=== PATIENT | female | born 1930 | race Caucasian/White ===

== ENCOUNTER 2017-07-17 09:49 | Inpatient (IN) | payer OTHER ==
[~2017-07-17] VITALS: Ht 137.2 cm; Wt 59.6 kg
[2017-07-17] MEDS ORDERED: SODIUM CHLORIDE 0.9% 1000ML 1,000 ML IV STA (10:28)
[2017-07-17] MEDS ORDERED: SODIUM CHLORIDE 0.9% 1000ML 250 ML IV STA (10:28)
--- NOTE | 2017-07-17 11:13 | DIAGNOSTIC IMAGING REPORT ---
CHEST ONE VIEW PORTABLE CLINICAL HISTORY: 86 years-old Female presenting with CHEST PAIN. TECHNIQUE: Portable upright AP view of the chest was obtained. COMPARISON: None. FINDINGS: Median sternotomy wires noted. Atherosclerosis of the aortic arch with mild tortuosity of the descending thoracic aorta. Cardiac silhouette normal in size. Lungs and pleural spaces clear. Vertebroplasty changes noted at several levels. Degenerative changes of the glenohumeral joints. Slight contour deformity of the anterior right sixth and seventh ribs. Upper abdomen normal. IMPRESSION: 1. No acute cardiopulmonary disease. 2. Slight contour deformity of the right anterior sixth and seventh ribs raises concern for acute fractures. Correlate with point tenderness. Electronically signed by: Daryn Daniels M.D. 07/17/2017 11:12 AM Dictated Date/Time: 07/17/2017 11:10 AM
[2017-07-17 11:19] LABS: HEMATOCRIT 28.7 % (37-47); MEAN CELL VOLUME 91.4 fL (80-100); MEAN CORPUSCULAR HEMOGLOBIN 29.9 pg (25-34); MEAN CORPUSCULAR HGB CONC 32.8 g/dl (32-36); MEAN PLATELET VOLUME 9.1 fL (7.4-10.4); PLATELET COUNT 267 K/uL (130-400); RED BLOOD COUNT 3.14 M/uL (4.2-5.4); WHITE BLOOD COUNT 5.78 K/uL (4.8-10.8)
[2017-07-17 11:30] LABS: INR 0.9 (0.9-1.1); PARTIAL THROMBOPLASTIN RATIO 0.8; PROTHROMBIN TIME (PATIENT) 10.1 SECONDS (9.0-12.0)
[2017-07-17 11:35] LABS: BASO % 0.3 %; BASO ABS # 0.02 K/uL (0-0.2); COMPLETE YES; EOS % 1.4 %; IG% 0.9 %; LYMPH % 15.4 %; LYMPH ABS # 0.89 K/uL (1.2-3.4); MONO % 12.8 %; NEUT % 69.2 %
[2017-07-17 11:43] LABS: ALT/SGPT 169 U/L (12-78); BLOOD UREA NITROGEN 8 mg/dl (7-18); BUN/CREATININE RATIO 11.8 (10-20); CALCIUM 8.6 mg/dl (8.5-10.1); CARBON DIOXIDE 29 mmol/L (21-32); CHLORIDE 103 mmol/L (98-107); CREATININE 0.65 mg/dl (0.60-1.20); GLUCOSE 101 mg/dl (70-99); POTASSIUM 3.6 mmol/L (3.5-5.1); SODIUM 138 mmol/L (136-145)
[2017-07-17 11:48] LABS: ALKALINE PHOSPHATASE 223 U/L (45-117); AST/SGOT 252 U/L (15-37); CKMB/CK RATIO 0.9 (0-3.0)
--- NOTE | 2017-07-17 11:52 | DIAGNOSTIC IMAGING REPORT ---
HEAD WITHOUT CONTRAST (CT) CLINICAL HISTORY: 86 years-old Female presenting with episode of altered loc, temporarily unresponsive. TECHNIQUE: Multidetector CT imaging of the head was performed without the use of intravenous contrast. IV contrast: None. A dose lowering technique was used consistent with the principles of ALARA (as low as reasonably achievable). COMPARISON: None. CT DOSE (mGy.cm): The estimated cumulative dose is 537.48 mGy.cm. FINDINGS: Extra Hand topogram: Unremarkable. Proportional ventricular and sulcal prominence, likely age-related parenchymal volume loss. Periventricular and subcortical white matter hypoattenuation, nonspecific but likely indicative of chronic small vessel ischemic change. Lacunar infarct in the left basal ganglia. No mass effect or midline shift. No hemorrhage or acute territorial infarct. No extra-axial fluid collection. Paranasal sinuses and mastoid air cells clear. Calvarium intact. IMPRESSION: 1. No acute intracranial pathology. 2. 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 Electronically signed by: Daryn Daniels M.D. 07/17/2017 11:51 AM Dictated Date/Time: 07/17/2017 11:49 AM
[2017-07-17] MEDS ORDERED: ACET325T96 PO (12:17)
[2017-07-17] MEDS ORDERED: HYDR25TA4 PO (12:17)
[2017-07-17] MEDS ORDERED: DOCU100C31 PO (12:17)
[2017-07-17] MEDS ORDERED: HYDR-3124 PO (12:17)
[2017-07-17] MEDS ORDERED: TRAM-10 PO (12:17)
[2017-07-17] MEDS ORDERED: FLUT0.15 NAE (12:17)
[2017-07-17] MEDS ORDERED: SENN-65 PO (12:17)
[2017-07-17] MEDS ORDERED: ROPI2TAB6 PO (12:17)
[2017-07-17] MEDS ORDERED: EZET10TA63 PO (12:17)
[2017-07-17] MEDS ORDERED: ATOR-24 PO (12:17)
[2017-07-17] MEDS ORDERED: METO1TAB54 PO (12:17)
[2017-07-17] MEDS ORDERED: FAMO40TA6 PO (12:17)
[2017-07-17] MEDS ORDERED: APIX1TAB PO (12:17)
[2017-07-17] MEDS ORDERED: CLR10 PO (12:17)
[2017-07-17] MEDS ORDERED: NF656 TD (12:17)
[2017-07-17] MEDS ORDERED: NTRGSL/4 UT (12:17)
[2017-07-17] MEDS ORDERED: ATV/1 PO (12:17)
[2017-07-17] MEDS ORDERED: DEXT1SYP21 PO (12:17)
[2017-07-17] MEDS ORDERED: LISI20TA3 PO (12:17)
[2017-07-17] MEDS ORDERED: CARV6.25 PO (12:17)
--- NOTE | 2017-07-17 15:23 | EMERGENCY ROOM VISIT NOTE ---
History Report prepared by Mateo: Alysia Hancock Under the Supervision of: Dr. Lionel Laird M.D. First contact with patient: 10:23 Chief Complaint: ALTERED MENTAL STATUS Stated Complaint: AMS Nursing Triage Summary: pt arrives via EMS from [facility] , daughter who was with pt since last night reports pt was less alert since 0530 and had to be given AM meds in applesauce at 0700, at 0800 daughter reports mother was not responding at all pt currently awake and alert, speech clear and appropriate History of Present Illness The patient is a 86 year old female who presents to the Emergency Room with complaints of constant altered mental status beginning this morning. The patient 's states that the patient had a hip replacment on 07/11/17 6 days ago. He reports that she is currently at [facility] for rehabilitation and this morning she was not able to be woken up. He notes that [facility] was concerned that she was not arousable and wanted her to be seen in the ED. The states that the patients mental status seems baseline to him. The patient denies any headache, fever, chest pain, shortness of breath, abdominal pain, nausea, urinary symptoms, and recent falls. She reports that she is not on Coumadin and that she has a history of low sodium. Source of History: patient, spouse/significant other Onset: this morning Position: other (global) Quality: other (AMS) Timing: constant Associated Symptoms: No fevers, No headache, No chest pain, No SOB, No nausea, No abdominal pain, No urinary symptoms Review of Systems See HPI for pertinent positives & negatives. A total of 10 systems reviewed and were otherwise negative. Past Medical & Surgical Surgical Problems: (1) S/P hip replacement Old medical records were reviewed. Nurse's notes were reviewed and I agree with. Family History No pertinent family history stated. Social History Smoking Status: Never Smoker Alcohol Use: none Drug Use: none Marital Status: Housing Status: other ([facility]) Occupation Status: retired Current/Historical Medications Scheduled Acetaminophen Tab (Tylenol), 650 MG PO Q4H Apixaban (Eliquis), 2.5 MG PO Q12 Atorvastatin (Lipitor), 40 MG PO HS Carvedilol (Coreg), 6.25 MG PO BID Docusate Sodium (Docusate Sodium), 1 CAP PO BID Ezetimibe (Zetia), 10 MG PO DAILY Famotidine (Pepcid), 80 MG PO BID Fluticasone Propionate (Nasal) (Flonase Allergy Relief), 1 SPRAY JOSE DAILY Hydrochlorothiazide (Hctz), 25 MG PO DAILY Lidocaine (Lidoderm Patch 5%), 2 PATCH TD QAM Lisinopril (Prinivil), 20 MG PO DAILY Loratadine (Claritin), 10 MG PO DAILY Metoclopramide Hcl (Reglan), 5 MG PO ACHS Nitroglycerin (Nitrostat), 0.4 MG UT PRN Ropinirole (Requip), 4 MG PO Q8 Senna/Docusate Sod (Senokot S), 1 TAB PO HS Scheduled PRN Dextromethorphan-Guaifenesin (Guaifenesin/Dextromethorp 10-100 mg/5Ml), 5 ML PO Q4H PRN for Cough Hydroxyzine Hcl (Atarax), 25 MG PO Q6H PRN for Itching Lorazepam (Ativan), 1 MG PO BID PRN for Anxiety Tramadol (Ultram), 25 MG PO Q4H PRN for Pain Allergies Coded Allergies: No Known Allergies (Unverified , 07/17/17) Physical Exam Vital Signs Date Time Temp Pulse Resp B/P (MAP) Pulse Ox O2 Delivery O2 Flow Rate FiO2 07/17/17 14:13 98 20 159/83 96 Room Air 07/17/17 13:04 92 07/17/17 12:12 93 16 176/70 98 Room Air 07/17/17 11:09 94 16 166/84 98 Room Air 07/17/17 10:10 85 07/17/17 09:59 36.7 93 20 177/73 99 Room Air Physical Exam General: Non-ill appearing older female in no acute distress. HEENT: Normal cephalic atraumatic. Pupils are equal round and reactive to light. Extraocular movements are intact. Oropharynx is pink with moist mucous membranes. No swelling of the mouth lips or tongue. Neck: Supple with a midline trachea. No meningeal signs or stiffness, no JVD or bruits. No Stridor. Chest: Clear to auscultation bilaterally. No wheezes or rhonchi. No increased work of breathing. Heart: regular rate and rhythm. Abdomen: Soft nontender, nondistended without rebound guarding or rigidity. Extremities: No cyanosis clubbing or edema. No calf tenderness or assymetry Spine/Back. Non tender to palpation. No CVA tenderness Skin: Good turgor without rashes. Neurologic exam: Cranial nerves two through 12 are intact. Motor and sensation are intact and symmetrical throughout. Medical Decision & Procedures ER Provider Diagnostic Interpretation: Radiology results as stated below per my review and radiologist interpretation: HEAD WITHOUT CONTRAST (CT) FINDINGS: Founder / Ceo topogram: Unremarkable. Proportional ventricular and sulcal prominence, likely age-related parenchymal volume loss. Periventricular and subcortical white matter hypoattenuation, nonspecific but likely indicative of chronic small vessel ischemic change. Lacunar infarct in the left basal ganglia. No mass effect or midline shift. No hemorrhage or acute territorial infarct. No extra-axial fluid collection. Paranasal sinuses and mastoid air cells clear. Calvarium intact. IMPRESSION: 1. No acute intracranial pathology. 2. 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 Electronically signed by: Daryn Daniels M.D. 07/17/2017 11:51 AM Dictated Date/Time: 07/17/2017 11:49 AM CHEST ONE VIEW PORTABLE FINDINGS: Median sternotomy wires noted. Atherosclerosis of the aortic arch with mild tortuosity of the descending thoracic aorta. Cardiac silhouette normal in size. Lungs and pleural spaces clear. Vertebroplasty changes noted at several levels. Degenerative changes of the glenohumeral joints. Slight contour deformity of the anterior right sixth and seventh ribs. Upper abdomen normal. IMPRESSION: 1. No acute cardiopulmonary disease. 2. Slight contour deformity of the right anterior sixth and seventh ribs raises concern for acute fractures. Correlate with point tenderness. Electronically signed by: Daryn Daniels M.D. 07/17/2017 11:12 AM Dictated Date/Time: 07/17/2017 11:10 AM Laboratory Results 07/17/17 11:04 Red Blood Count 3.14, Mean Corpuscular Volume 91.4, Mean Corpuscular Hemoglobin 29.9, Mean Corpuscular Hemoglobin Concent 32.8, Mean Platelet Volume 9.1, Neutrophils (%) (Auto) 69.2, Lymphocytes (%) (Auto) 15.4, Monocytes (%) (Auto) 12.8, Eosinophils (%) (Auto) 1.4, Basophils (%) (Auto) 0.3, Neutrophils # (Auto ) 4.00, Lymphocytes # (Auto) 0.89, Monocytes # (Auto) 0.74, Eosinophils # (Auto ) 0.08, Basophils # (Auto) 0.02 07/17/17 11:04 Test 07/17/17 11:04 White Blood Count 5.78 K/uL (4.8-10.8) Red Blood Count 3.14 M/uL (4.2-5.4) Hemoglobin 9.4 g/dL (12.0-16.0) Hematocrit 28.7 % (37-47) Mean Corpuscular Volume 91.4 fL (80-100) Mean Corpuscular Hemoglobin 29.9 pg (25-34) Mean Corpuscular Hemoglobin Concent 32.8 g/dl (32-36) Platelet Count 267 K/uL (130-400) Mean Platelet Volume 9.1 fL (7.4-10.4) Neutrophils (%) (Auto) 69.2 % Lymphocytes (%) (Auto) 15.4 % Monocytes (%) (Auto) 12.8 % Eosinophils (%) (Auto) 1.4 % Basophils (%) (Auto) 0.3 % Neutrophils # (Auto) 4.00 K/uL (1.4-6.5) Lymphocytes # (Auto) 0.89 K/uL (1.2-3.4) Monocytes # (Auto) 0.74 K/uL (0.11-0.59) Eosinophils # (Auto) 0.08 K/uL (0-0.5) Basophils # (Auto) 0.02 K/uL (0-0.2) RDW Standard Deviation 47.5 fL (36.4-46.3) RDW Coefficient of Variation 14.3 % (11.5-14.5) Immature Granulocyte % (Auto) 0.9 % Immature Granulocyte # (Auto) 0.05 K/uL (0.00-0.02) Prothrombin Time 10.1 SECONDS (9.0-12.0) Prothromb Time International Ratio 0.9 (0.9-1.1) Activated Partial Thromboplast Time 21.7 SECONDS (21.0-31.0) Partial Thromboplastin Ratio 0.8 Anion Gap 6.0 mmol/L (3-11) Est Creatinine Clear Calc Drug Dose 53.7 ml/min Estimated GFR () 93.2 Estimated GFR (Non- 80.4 BUN/Creatinine Ratio 11.8 (10-20) Calcium Level 8.6 mg/dl (8.5-10.1) Total Bilirubin 0.8 mg/dl (0.2-1) Direct Bilirubin 0.3 mg/dl (0-0.2) Aspartate Amino Transf (AST/SGOT) 252 U/L (15-37) Alanine Aminotransferase (ALT/SGPT) 169 U/L (12-78) Alkaline Phosphatase 223 U/L (45-117) Total Creatine Kinase 101 U/L (26-192) Creatine Kinase MB 0.9 ng/ml (0.5-3.6) Creatine Kinase MB Ratio 0.9 (0-3.0) Troponin I < 0.015 ng/ml (0-0.045) Total Protein 5.8 gm/dl (6.4-8.2) Albumin 2.1 gm/dl (3.4-5.0) Lipase 161 U/L (73-393) Laboratory studies as stated above per my review. Medications Administered Medications (Trade) Dose Ordered Sig/Debbi Route Start Time Stop Time Status Last Admin Dose Admin Sodium Chloride 250 ml @ 999 mls/hr Q16M STAT IV 07/17/17 10:28 07/17/17 10:43 DC 07/17/17 10:28 999 MLS/HR Sodium Chloride 1,000 ml @ 100 mls/hr Q10H STAT IV 07/17/17 10:28 07/17/17 20:27 07/17/17 10:28 100 MLS/HR ECG Indication: weakness Rate (beats per minute): 81 Rhythm: normal sinus Findings: T-wave inversion (Lateral), no acute ischemic change Comparison ECG Date: no prior available ED Course 1023: Past medical records reviewed. The patient was evaluated in room A12B, and a complete history and physical examination were performed. 1028: Sodium Chloride 1000 ml @ 100 mls/hr IV, Sodium Chloride 250 ml @ 999 mls/ hr IV. 1349: I reevaluated the patient and spoke to her family. 1404: I spoke to Dr. Clay about the patients case. He will evaluate the patient for further management. 1424: Upon reevaluation, the patient is doing well. I discussed the results and treatment plan with the patient. She verbalized agreement of the treatment plan. The patient will be evaluated for further management. Medical Decision Differentials include, but are not limited to; medication side effect, infection , electrolyte or metabolic abnormality, cardiac disease, arrhythmia. This patient comes in as described above. She was placed in room A 12. She is presently at [facility] recuperating from a hip replacement on the left. She had an episode today when she was unresponsive. They could not arouse her. She apparently had stable vital signs at the time. She had had no sedating medications such as narcotics prior to this. She has had no recent illness. At present , she seems he back at her normal baseline. She is awake and alert and answering questions appropriately. She has normal neurologic exam. IV access established and multiple blood tests was obtained. She was gently hydrated with IV normal saline bolus as outlined above. CAT scan of her head shows no acute findings. She has an old lacunar infarct and some chronic changes. She has no significant electrolyte or metabolic abnormalities. She has had hyponatremia before but none today. Her LFTs are mildly elevated however. She has no tenderness in the right abdomen. Her EKG does not suggest acute coronary syndrome or arrhythmia. She seems very doing much better. I do think she needs to be observed overnight as this could've been cardiac or neurologic event that is yet to be determined. I have consulted the [facility] hospitalist to see her in the emergency department. Medication Reconcilliation Current Medication List: was personally reviewed by me Blood Pressure Screening Patient's blood pressure: Elevated blood pressure Blood pressure disposition: Elevated BP felt to be situational Consults Time Called: 1400 Consulting Physician: Dr. Danna Haider Returned Call: [address] Clay about the patients case. He will evaluate the patient for further management. Impression Primary Impression: Altered mental status Scribe Attestation The scribe's documentation has been prepared under my direction and personally reviewed by me in its entirety. I confirm that the note above accurately reflects all work, treatment, procedures, and medical decision making performed by me. Departure Information Dispostion Being Evaluated By Hospitalist Patient Instructions [facility]
[2017-07-17] MEDS ORDERED: IBUPROFEN 200 MG TAB PO PRN (15:45)
[2017-07-17] MEDS ORDERED: METOCLOPRAMIDE HCL 5 MG TAB PO PRN (16:00)
[2017-07-17] MEDS ORDERED: IV FLUIDS COMPLETED PRN (16:00)
[2017-07-17] MEDS ORDERED: METOCLOPRAMIDE HCL 5 MG TAB PO SCH (16:00)
[2017-07-17] MEDS ORDERED: LORAZEPAM 2 MG/ML 1 ML VIAL IV STA (16:13)
--- NOTE | 2017-07-17 16:21 | History and Physical ---
History & Physical Date & Time of Service: Jul 17, 2017 at 15:54 Chief Complaint: AMS Primary Care Physician: Katarzyna Dean D.O. History of Present Illness Source: patient, family, clinic records, hospital records, other (rehab) 86 year old female with history of CAD s/p CABG, PE/DVT, HTN, and other problems noted below presenting with altered mental status. Patient underwent Left BRENT and Femoral Fracture Repair in [facility] last 07/11/17. She was then transferred to [facility] rehab last 07/14/17. According to Rehab notes, patient was noted to have confusional episodes especially during the night. This morning, around 840am, PT tried to wake patient up but was unresponsive. RN was called, patient given sternal rub but was still not responding at all. ILLUSIONIST was called, initial Bp was systolic 180s otherwise stable VS. after about 40 minutes of stimulation, patient eventually awakened and was brought to the ER. Patient received afebrile, no leukocytosis but noted to have elevated LFTs. 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 Hospitalist consulted. Seen with son and daughter in law at the bedside. She is alert, oriented x 2, answers some questions appropriately but would be confused most of the time. She does follow all simple commands. She denies headache, dizziness, nausea, chest pain, dyspnea, palpitations, abdominal pain, problems urinating. Does not report significant pain on the surgical site, nor problems with walking using a walker. Does report 1 episode of loose BM last night. Past Medical/Surgical History Surgical Problems: (1) S/P hip replacement Status: Chronic Family History Cancer - Sister Social History Smoking Status: Never Smoker Smokeless Tobacco Use: No Alcohol Use: none Drug Use: none Marital Status: Housing status: other (Rehab) Occupational Status: retired Allergies Coded Allergies: No Known Allergies (Unverified , 07/17/17) Home Medications Scheduled Acetaminophen Tab (Tylenol), 650 MG PO Q4H Apixaban (Eliquis), 2.5 MG PO Q12 Atorvastatin (Lipitor), 40 MG PO HS Carvedilol (Coreg), 6.25 MG PO BID Docusate Sodium (Docusate Sodium), 1 CAP PO BID Ezetimibe (Zetia), 10 MG PO DAILY Famotidine (Pepcid), 80 MG PO BID Fluticasone Propionate (Nasal) (Flonase Allergy Relief), 1 SPRAY JOSE DAILY Hydrochlorothiazide (Hctz), 25 MG PO DAILY Lidocaine (Lidoderm Patch 5%), 2 PATCH TD QAM Lisinopril (Prinivil), 20 MG PO DAILY Loratadine (Claritin), 10 MG PO DAILY Metoclopramide Hcl (Reglan), 5 MG PO ACHS Nitroglycerin (Nitrostat), 0.4 MG UT PRN Ropinirole (Requip), 4 MG PO Q8 Senna/Docusate Sod (Senokot S), 1 TAB PO HS Scheduled PRN Dextromethorphan-Guaifenesin (Guaifenesin/Dextromethorp 10-100 mg/5Ml), 5 ML PO Q4H PRN for Cough Hydroxyzine Hcl (Atarax), 25 MG PO Q6H PRN for Itching Lorazepam (Ativan), 1 MG PO BID PRN for Anxiety Tramadol (Ultram), 25 MG PO Q4H PRN for Pain Review of Systems Constitutional- no fever; no weight loss Eyes- no acute visual changes ENT- no sinus drainage; no pharyngitis Pulmonary- no cough, no wheezing, no shortness of breath Cardiac- no chest pain, no palpitations, no orthopnea, no dependent edema GI- no nausea, no vomiting, no diarrhea, no melena, no hematochezia - no dysuria, no hematuria Musculoskeletal- no arthralgias, no myalgias Derm- no rashes, no new skin lesions, no changing skin lesions Hematologic- no unusual bruising, no unusual bleeding Lymphatics- no adenopathy Endocrine- no polyuria or polydipsia; no heat or cold intolerance Neuro- (+) as noted above Psych- no anxiety, no depression Physical Exam Vital Signs Date Time Temp Pulse Resp B/P (MAP) Pulse Ox O2 Delivery O2 Flow Rate FiO2 07/17/17 14:13 98 20 159/83 96 Room Air 07/17/17 13:04 92 07/17/17 12:12 93 16 176/70 98 Room Air 07/17/17 11:09 94 16 166/84 98 Room Air 07/17/17 10:10 85 07/17/17 09:59 36.7 93 20 177/73 99 Room Air General Appearance: WD/WN, no apparent distress Head: normocephalic, atraumatic Eyes: normal inspection, PERRL, EOMI, sclerae normal ENT: normal ENT inspection, hearing grossly normal, pharynx normal Neck: supple, no adenopathy, thyroid normal, no JVD, trachea midline Respiratory/Chest: chest non-tender, lungs clear, normal breath sounds, no respiratory distress, no accessory muscle use Cardiovascular: regular rate, rhythm, no JVD, no murmur Abdomen/GI: normal bowel sounds, non tender, soft Extremities/Musculoskelatal: + pertinent finding (left hip: surgical site (+) helen in place, wound well opposed, no discharge, (+) significant edema, mild erythema, moderate warmth and tenderness on the upper ext, mild edema lower ext) Neurologic/Psych: precision filer hand II-XII nml as tested, no motor/sensory deficits, normal mood/affect, normal reflexes, oriented x 3 Skin: normal color, warm/dry, no rash Lymphatic: no adenopathy Diagnostics Laboratory Results Results Past 24 Hours Test 07/17/17 10:28 07/17/17 11:04 07/17/17 15:30 Range/Units Creatine Kinase MB Ratio 0.9 0-3.0 White Blood Count 5.78 4.8-10.8 K/uL Red Blood Count 3.14 4.2-5.4 M/uL Hemoglobin 9.4 12.0-16.0 g/dL Hematocrit 28.7 37-47 % Mean Corpuscular Volume 91.4 80-100 fL Mean Corpuscular Hemoglobin 29.9 25-34 pg Mean Corpuscular Hemoglobin Concent 32.8 32-36 g/dl Platelet Count 267 130-400 K/uL Mean Platelet Volume 9.1 7.4-10.4 fL Neutrophils (%) (Auto) 69.2 % Lymphocytes (%) (Auto) 15.4 % Monocytes (%) (Auto) 12.8 % Eosinophils (%) (Auto) 1.4 % Basophils (%) (Auto) 0.3 % Neutrophils # (Auto) 4.00 1.4-6.5 K/uL Lymphocytes # (Auto) 0.89 1.2-3.4 K/uL Monocytes # (Auto) 0.74 0.11-0.59 K/uL Eosinophils # (Auto) 0.08 0-0.5 K/uL Basophils # (Auto) 0.02 0-0.2 K/uL RDW Standard Deviation 47.5 36.4-46.3 fL RDW Coefficient of Variation 14.3 11.5-14.5 % Immature Granulocyte % (Auto) 0.9 % Immature Granulocyte # (Auto) 0.05 0.00-0.02 K/uL Prothrombin Time 10.1 9.0-12.0 SECONDS Prothromb Time International Ratio 0.9 0.9-1.1 Activated Partial Thromboplast Time 21.7 21.0-31.0 SECONDS Partial Thromboplastin Ratio 0.8 Sodium Level 138 136-145 mmol/L Potassium Level 3.6 3.5-5.1 mmol/L Chloride Level 103 98-107 mmol/L Carbon Dioxide Level 29 21-32 mmol/L Anion Gap 6.0 3-11 mmol/L Blood Urea Nitrogen 8 7-18 mg/dl Creatinine 0.65 0.60-1.20 mg/dl Est Creatinine Clear Calc Drug Dose 53.7 ml/min Estimated GFR () 93.2 Estimated GFR (Non- 80.4 BUN/Creatinine Ratio 11.8 10-20 Random Glucose 101 70-99 mg/dl Calcium Level 8.6 8.5-10.1 mg/dl Total Bilirubin 0.8 0.2-1 mg/dl Direct Bilirubin 0.3 0-0.2 mg/dl Aspartate Amino Transf (AST/SGOT) 252 15-37 U/L Alanine Aminotransferase (ALT/SGPT) 169 12-78 U/L Alkaline Phosphatase 223 45-117 U/L Total Creatine Kinase 101 26-192 U/L Creatine Kinase MB 0.9 0.5-3.6 ng/ml Troponin I < 0.015 0-0.045 ng/ml Total Protein 5.8 6.4-8.2 gm/dl Albumin 2.1 3.4-5.0 gm/dl Lipase 161 73-393 U/L Microbiology Results 07/17/17 Blood Culture, Ordered Pending 07/17/17 Blood Culture, Received Pending Diagnostic Radiology CT head 1. No acute intracranial pathology. 2. Chronic small vessel ischemic change and old lacunar infarct in left basal CXR IMPRESSION: 1. No acute cardiopulmonary disease. 2. Slight contour deformity of the right anterior sixth and seventh ribs raises concern for acute fractures. Correlate with point tenderness. EKG NSR, non specific t wave changes in the inferior and lateral leads Impression Assessment and Plan 86 year old female with history of CAD s/p CABG, PE/DVT, HTN, and other problems noted below presenting with altered mental status. ALTERED MENTAL STATUS R/O CVA check MRI brain R/O SEIZURE EEG R/O ELEVATED AMMONIA Ammonia Level R/O INFECTION no fever, leukocytosis check blood culture, urine culture surgical site with erythema, tenderness, warmth, cannot exclude infection at this point will consult Ortho R/O MEDICATION RELATED patient received Tramadol, Atarax, Metoclopromide while in Rehab hold above meds s/p LEFT HIP BRENT 07/11/17 surgical site with erythema, tenderness, warmth, needs to exclude infection at this point will consult Ortho ELEVATED LFTS no history of liver disease check Liver US RIGHT ANTERIOR RIB FRACTURES denies chest pain monitor PRN analgesia ANEMIA Hg 9 at baseline monitor 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 DISPO anticipate return to HS when medically stable VTE Prophylaxis VTE Risk Assessment Done? Y/N: Yes Risk Level: Moderate Given or contraindicated: Other Anticoagulation
--- NOTE | 2017-07-17 17:34 | DIAGNOSTIC IMAGING REPORT ---
ORBITS FOR MRI CLINICAL HISTORY: 86 years-old Female presenting with needs mri brain. TECHNIQUE: 3 views of the orbits were obtained. COMPARISON: None. FINDINGS: No radiopaque foreign body projects over the orbits. Bony orbits grossly intact. Paranasal sinuses grossly clear. Visualized portion of the calvarium intact. IMPRESSION: No intraorbital metallic foreign body to preclude MRI exam. Electronically signed by: Daryn Daniels M.D. 07/17/2017 5:32 PM Dictated Date/Time: 07/17/2017 5:32 PM
[2017-07-17] MEDS ORDERED: SODIUM CHLORIDE 0.9% 1000ML 1,000 ML IV SCH (18:30)
[2017-07-17] MEDS ORDERED: ENALAPRILAT IV 0.625 MG in DEXTROSE 5% 25ML 25 ML IV PRN (18:30)
[2017-07-17] MEDS ORDERED: ENALAPRILAT IV 0.625 MG in DEXTROSE 5% 25ML 25 ML IV ONE (19:00)
[2017-07-17 20:00] VITALS: Ht 137.2 cm; Wt 59.6 kg
[2017-07-17] MEDS ORDERED: DOCUSATE SODIUM 100 MG CAP PO SCH (21:00)
[2017-07-17] MEDS: DOCUSATE SODIUM/SENNA 50/8.6MG TAB PO SCH (21:00)
[2017-07-17] MEDS: ROPINIROLE HCL 1 MG TAB PO SCH (21:01)
[2017-07-17] MEDS: FAMOTIDINE 20 MG TAB PO SCH (21:02)
[2017-07-17] MEDS: CARVEDILOL 6.25 MG TAB PO SCH (21:02)
[2017-07-17] MEDS: APIXABAN 2.5 MG TAB PO SCH (21:02)
[2017-07-18] VITALS (9 sets, daily range): BP systolic 134–169; BP diastolic 63–85; PULSE 87–103; TEMP 36.5–37.1; O2SAT 94–99
[2017-07-18] MEDS: ROPINIROLE HCL 1 MG TAB PO SCH ×3 (06:11→20:35)
[2017-07-18 06:44] LABS: BASO % 0.3 %; BASO ABS # 0.02 K/uL (0-0.2); COMPLETE YES; HEMATOCRIT 27.8 % (37-47); IG% 0.7 %; LYMPH % 14.6 %; LYMPH ABS # 0.86 K/uL (1.2-3.4); MEAN CELL VOLUME 91.4 fL (80-100); MEAN CORPUSCULAR HEMOGLOBIN 30.9 pg (25-34); MEAN CORPUSCULAR HGB CONC 33.8 g/dl (32-36); MEAN PLATELET VOLUME 8.9 fL (7.4-10.4); NEUT % 72.4 %; PLATELET COUNT 227 K/uL (130-400); RED BLOOD COUNT 3.04 M/uL (4.2-5.4); WHITE BLOOD COUNT 5.91 K/uL (4.8-10.8)
--- NOTE | 2017-07-18 06:58 | DIAGNOSTIC IMAGING REPORT ---
ABDOMINAL ULTRASOUND, RIGHT UPPER QUADRANT HISTORY: Elevated liver function tests. COMPARISON: None. FINDINGS: This exam is mildly compromised due to suboptimal penetration. No biliary ductal dilatation was identified. The common bile duct measured 6 mm in caliber. No hepatic lesions were identified. The gallbladder was mildly distended. A small amount of sludge was noted within the gallbladder. No gallstones were identified. There may be minimal gallbladder wall edema. Sonographic Duncan sign could not be assessed in this patient due to medication. The pancreatic body was normal. The head and tail were obscured. No right hydronephrosis was identified. IMPRESSION: 1. No gallstones or biliary ductal dilatation. 2. Mildly distended gallbladder containing minimal sludge with possible trace gallbladder wall edema. A hepatobiliary scan could be obtained as indicated. 3. Largely obscured pancreas. Electronically signed by: Chad Marsh M.D. 07/18/2017 6:57 AM Dictated Date/Time: 07/18/2017 6:53 AM
[2017-07-18 07:14] LABS: BUN/CREATININE RATIO 18.7 (10-20); CALCIUM 7.8 mg/dl (8.5-10.1); CREATININE 0.54 mg/dl (0.60-1.20); POTASSIUM 3.3 mmol/L (3.5-5.1)
[2017-07-18] MEDS: APIXABAN 2.5 MG TAB PO SCH ×2 (07:38→20:35)
[2017-07-18] MEDS: FAMOTIDINE 20 MG TAB PO SCH ×2 (07:38→20:35)
[2017-07-18] MEDS: LISINOPRIL 20 MG TAB PO SCH (07:38)
[2017-07-18] MEDS: CARVEDILOL 6.25 MG TAB PO SCH ×2 (07:38→20:35)
[2017-07-18] MEDS: FLUTICASONE PROPIONATE NA SPR 16 GM BTL NAE SCH (07:38)
[2017-07-18] MEDS: LIDODERM (LIDOCAINE) PATCH 5% TD SCH (07:39)
[2017-07-18 07:52] LABS: URINE APPEARANCE CLEAR (CLEAR); URINE BILIRUBIN NEG (NEG); URINE COLOR YELLOW; URINE EPITHELIAL CELL AUTO 20-30 /lpf (0-5); URINE NITRITE NEG (NEG); URINE SPECIFIC GRAVITY 1.014 (1.000-1.030); UROBILINOGEN NEG (NEG)
[2017-07-18 07:53] LABS: MANUAL MICROSCOPIC REQUIRED? NO; REVIEW REQ? NO
[2017-07-18] MEDS ORDERED: POTASSIUM CHLORIDE 10 MEQ TABCR PO ONE (08:15)
[2017-07-18] MEDS ORDERED: LORATADINE 10 MG TAB PO SCH (09:00)
--- NOTE | 2017-07-18 09:48 | Gastrointestinal Consultation ---
Gastrointestinal Consultation Date of Consultation: Jul 18, 2017 Attending Physician: Dr. Clay Consulting Physician: Dr. Wheeler Reason for Consultation: Elevated LFTs History of Present Illness Patient is a 86 year old female patient of Dr. Katarzyna Dean with a hx of CAD, CABG, PE/DVT, recent left hip replacement was brought to [facility] yesterday morning for mental status changes. GI is consulted for elevated LFTs. The patient is now awake and alert, able to answer questions but has some confusion. She appears comfortable. Her daughter Veronica is here at the bedside and gives a detailed account of her mom's recent hx. On Jul 11, her mother underwent hip replacement at [facility]) which was complicated because the femur fractured during the surgery. Still, she was recovering well and was at [facility]. Yesterday morning at [facility], she had been wide awake at night then fell asleep at 5:30Am and was only minimally arousable at 7AM. Due to this, she was transferred here. On arrival, CT of the head, w/o acute changes. Transaminases were elevated on arrival: AST 252 (today 142), [id number] (today 121), Alk P)hos on arrival 223 (today 185). Bilirubin has been normal. The daughter tells me that the mother has not complained of any abdominal pain, has not had nausea/vomiting or jaundice. Past Medical/Surgical History Medical Problems: (1) Altered mental status Status: Acute Past Medical History: 1. Osteoporosis 2. DDD 3. CAD, S/P CABG 4. PE/DVT 5. HTN 6. Some confusion over the past few months. 7. Hyponatremia. Past Surgical History: 1. Rt hip replacement about 10 yrs ago 2. Rt knee replacement a yr ago 3. Multiple back surgeries for DDD 4. Total abdominal hysterectomy Social History Smoking Status: Never Smoker Alcohol Use: none Drug Use: none Marital Status: Housing Status: other ([facility]) Occupation Status: retired Allergies Coded Allergies: No Known Allergies (Unverified , 07/17/17) Current Medications Home Meds and Scripts Medications Dose Route/Sig Max Daily Dose Days Date Category Dose Instructions Ultram (Tramadol HCl) 50 Mg Tab 25 Mg PO Q4H PRN 07/17/17 Reported Requip (Ropinirole HCl) 2 Mg Tab 4 Mg PO Q8 07/17/17 Reported Nitrostat (Nitroglycerin) 0.4 Mg Tab 0.4 Mg UT PRN 07/17/17 Reported Reglan (Metoclopramide Hcl) 5 Mg Tab 5 Mg PO ACHS 07/17/17 Reported Ativan (Lorazepam) 1 Mg Tab 1 Mg PO BID PRN 07/17/17 Reported Claritin (Loratadine) 10 Mg Tab 10 Mg PO DAILY 07/17/17 Reported Prinivil (Lisinopril) 20 Mg Tab 20 Mg PO DAILY 07/17/17 Reported Lidoderm Patch 5% (Lidocaine) 1 Ea Tdsy 2 Patch TD QAM 07/17/17 Reported TO LEFT HIP Atarax (Hydroxyzine Hcl) 25 Mg Tab 25 Mg PO Q6H PRN 07/17/17 Reported Hctz (Hydrochlorothiazide) 25 Mg Tab 25 Mg PO DAILY 07/17/17 Reported Flonase Allergy Relief (Fluticasone Propionate (Nasal)) 50 Mcg/Act Spr 1 [place] JOSE DAILY 07/17/17 Reported Pepcid (Famotidine) 40 Mg Tab 80 Mg PO BID 07/17/17 Reported Zetia (Ezetimibe) 10 Mg Tab 10 Mg PO DAILY 07/17/17 Reported Senokot S (Senna/Docusate Sodium) 1 Tab Tab 1 Tab PO HS 07/17/17 Reported Docusate Sodium 100 Mg Cap 1 Cap PO BID 07/17/17 Reported Guaifenesin/Dextromethorp 10-100 mg/5Ml (Dextromethorphan-Guaifenesin) 1 Syp Syp 5 Ml PO Q4H PRN 07/17/17 Reported Coreg (Carvedilol) 6.25 Mg Tab 6.25 Mg PO BID 07/17/17 Reported Lipitor (Atorvastatin Calcium) 40 Mg Tab 40 Mg PO HS 07/17/17 Reported Eliquis (Apixaban) 2.5 Mg Tab 2.5 Mg PO Q12 07/17/17 Reported Tylenol (Acetaminophen) 325 Mg Tab 650 Mg PO Q4H 07/17/17 Reported Review of Systems Constitutional: + weakness, No fever, No chills, No sweats, No weight loss Eyes: No eye pain, No redness ENT: No sore throat, No trouble swallowing, No pain on swallowing Respiratory: No cough, No wheezing, No shortness of breath, No dyspnea on exertion Cardiac: No chest pain, No edema, No palpitations Abdomen: + see HPI, No pain, No nausea, No vomiting, No diarrhea, No constipation, No GI bleeding, No acolic stools, No jaundice, No dark urine Musculoskeletal: + joint pain (left hip pain) Neuro: No memory loss, No weakness, No numbness/tingling, No vertigo, No balance problems Psych: No depression symptoms, No anxiety, No insomnia Heme: No abnormal bleeding/bruising, No night sweats Endo: No excessive thirst, No excessive urination Skin: No rash, No itch, No new/changing skin lesions, No jaundice Physical Exam Date Time Temp Pulse Resp B/P (MAP) Pulse Ox O2 Delivery O2 Flow Rate FiO2 07/18/17 08:32 99 Room Air 07/18/17 07:41 36.9 94 16 151/63 (92) 99 Room Air 07/18/17 04:00 Room Air 07/18/17 03:56 36.5 90 21 141/72 (95) 96 Room Air 07/18/17 00:00 37.0 90 18 156/63 (94) 94 Room Air 07/18/17 00:00 Room Air 07/17/17 20:00 Room Air 07/17/17 20:00 Room Air 07/17/17 16:07 96 18 182/81 96 Room Air 07/17/17 14:13 98 20 159/83 96 Room Air 07/17/17 13:04 92 07/17/17 12:12 93 16 176/70 98 Room Air 07/17/17 11:09 94 16 166/84 98 Room Air 07/17/17 10:10 85 07/17/17 09:59 36.7 93 20 177/73 99 Room Air General Appearance: no apparent distress Eyes: normal inspection, EOMI Neck: supple, no adenopathy, thyroid normal, no JVD Respiratory/Chest: chest non-tender, lungs clear, normal breath sounds, no accessory muscle use Cardiovascular: regular rate, rhythm, no JVD, no murmur Abdomen: normal bowel sounds, non tender, soft, no organomegaly Extremities: normal inspection, no pedal edema, normal capillary refill Neurologic/Psych: alert, normal mood/affect, oriented x 3 Skin: normal color, no jaundice, warm/dry, no rash Laboratory Results Last 24 Hours Test 07/17/17 10:28 07/17/17 11:04 07/17/17 15:57 07/18/17 06:18 Creatine Kinase MB Ratio 0.9 White Blood Count 5.78 K/uL 5.91 K/uL Red Blood Count 3.14 M/uL 3.04 M/uL Hemoglobin 9.4 g/dL 9.4 g/dL Hematocrit 28.7 % 27.8 % Mean Corpuscular Volume 91.4 fL 91.4 fL Mean Corpuscular Hemoglobin 29.9 pg 30.9 pg Mean Corpuscular Hemoglobin Concent 32.8 g/dl 33.8 g/dl Platelet Count 267 K/uL 227 K/uL Mean Platelet Volume 9.1 fL 8.9 fL Neutrophils (%) (Auto) 69.2 % 72.4 % Lymphocytes (%) (Auto) 15.4 % 14.6 % Monocytes (%) (Auto) 12.8 % 10.0 % Eosinophils (%) (Auto) 1.4 % 2.0 % Basophils (%) (Auto) 0.3 % 0.3 % Neutrophils # (Auto) 4.00 K/uL 4.28 K/uL Lymphocytes # (Auto) 0.89 K/uL 0.86 K/uL Monocytes # (Auto) 0.74 K/uL 0.59 K/uL Eosinophils # (Auto) 0.08 K/uL 0.12 K/uL Basophils # (Auto) 0.02 K/uL 0.02 K/uL RDW Standard Deviation 47.5 fL 48.5 fL RDW Coefficient of Variation 14.3 % 14.5 % Immature Granulocyte % (Auto) 0.9 % 0.7 % Immature Granulocyte # (Auto) 0.05 K/uL 0.04 K/uL Prothrombin Time 10.1 SECONDS Prothromb Time International Ratio 0.9 Activated Partial Thromboplast Time 21.7 SECONDS Partial Thromboplastin Ratio 0.8 Sodium Level 138 mmol/L 137 mmol/L Potassium Level 3.6 mmol/L 3.3 mmol/L Chloride Level 103 mmol/L 102 mmol/L Carbon Dioxide Level 29 mmol/L 25 mmol/L Anion Gap 6.0 mmol/L 10.0 mmol/L Blood Urea Nitrogen 8 mg/dl 10 mg/dl Creatinine 0.65 mg/dl 0.54 mg/dl Est Creatinine Clear Calc Drug Dose 53.7 ml/min 49.4 ml/min Estimated GFR () 93.2 99.0 Estimated GFR (Non- 80.4 85.4 BUN/Creatinine Ratio 11.8 18.7 Random Glucose 101 mg/dl 68 mg/dl Calcium Level 8.6 mg/dl 7.8 mg/dl Total Bilirubin 0.8 mg/dl 0.7 mg/dl Direct Bilirubin 0.3 mg/dl 0.3 mg/dl Aspartate Amino Transf (AST/SGOT) 252 U/L 142 U/L Alanine Aminotransferase (ALT/SGPT) 169 U/L 121 U/L Alkaline Phosphatase 223 U/L 182 U/L Total Creatine Kinase 101 U/L Creatine Kinase MB 0.9 ng/ml Troponin I < 0.015 ng/ml Total Protein 5.8 gm/dl 5.2 gm/dl Albumin 2.1 gm/dl 2.0 gm/dl Lipase 161 U/L Hepatitis C Antibody NEG Ammonia 22.0 umol/L Test 07/18/17 07:00 Urine Color YELLOW Urine Appearance CLEAR Urine pH 7.0 Urine Specific [place] 1.014 Urine Protein NEG Urine Glucose (UA) NEG Urine Ketones 1+ Urine Occult Blood NEG Urine Nitrite NEG Urine Bilirubin NEG Urine Urobilinogen NEG Urine Leukocyte Esterase TRACE Urine WBC (Auto) 1-5 /hpf Urine RBC (Auto) 0-4 /hpf Urine Hyaline Casts (Auto) 1-5 /lpf Urine Epithelial Cells (Auto) 20-30 /lpf Urine Bacteria (Auto) NEG Impression Patient is a 86 year old female with elevated transaminases and Alk Phos yesterday, continued to be elevated but much improved today in the setting of recent major surgery, recent altered mental status episode. The family is not aware of any prior hx of elevated LFTs. She has never been a heavy drinker. She has not been on antibiotics in the past few days. Imaging is w/o obstruction and she does not have any symptoms of biliary obstruction (no pain, no jaundice) . Most likely this is a reaction to a brief period of low blood flow to the liver that could have occurred yesterday during the episode of minimal responsiveness, however, the daughter tells me that her BP was hypertensive at the time, which argues against this. Plan 1. No specific further imaging studies recommended regarding the LFTs at this time. 2. Recheck LFTs each morning. I have personally seen and examined the patient with FELICIA Villalobos. Her note reflects my exam and findings. I agree with her impression and plan. Doubt mild transaminitis is clinically significant and is most likely related to medications. José Wheeler M.D.
--- NOTE | 2017-07-18 11:48 | ELECTROENCEPHALOGRAPH REPORT ---
FOR: Dr. Clay. CLINICAL DIAGNOSIS: Periodic lethargy, confusion, question seizures. EEG DIAGNOSIS: Essentially normal during wakefulness and drowsiness. DESCRIPTION OF TRACING: This EEG was done as a bedside recording with simultaneous video analysis of patient movement and behavior. No photic stimulation or hyperventilation was utilized. Drowsiness was recorded initially and then again toward the end of the tracing. The initial phase of the tracing actually appeared to be done in a drowsy state where there was really very little normal background activity in the alpha range and a monotonous posterior head region maximal theta rhythm of about 6-7 Hz. During these intervals, there was more central theta delta activity as well, but this was symmetrical, does not lateralize and not associated with any potentially epileptogenic patterns. Beta activity was seen bifrontally. As the tracing proceeds, the patient becomes more awake and alert and this was confirmed by video analysis, and during these intervals of time, there appears to be a background rhythm in the alpha range of about 9 Hz of maximum frequency and 30 microvolts of maximum amplitude. This was symmetrical in bilateral head regions, in the bioccipital regions. During these intervals, theta activity is seen centrally as shifting to the higher frequencies and is of normal voltage. Beta activity is again present bifrontally. Later in the tracing, the patient does reemerge into a drowsy state, at which point the prior pattern of monotonous slowing of background rhythms and buildup of rhythmic slow wave activity is again seen. During neither of these drowsy intervals is there evidence for potentially epileptogenic activity in the form of polyspike or spike wave bursts, focal sharp waves or focal spikes. INTERPRETATION: This EEG is essentially normal during wakefulness and 2 recorded episodes of drowsiness. There is no evidence for clearcut potentially epileptogenic activity during the tracing but its absence of course does not exclude the diagnosis of seizure activity. MTDD
--- NOTE | 2017-07-18 12:22 | Orthopedic Consultation ---
Orthopedic Consultation Date of Consultation: Jul 18, 2017. Attending Physician: John Clay MD Reason for Consultation: s/p L BRENT, concern for surgical incision infection History of Present Illness Patient seen at bedside accompanied by her [id number] who provided the majority of the HPI due to the patient being confused. Was found 07/17/17 morning being lethargic and confused and subsequently admitted. Patient had previous L BRENT on 07/11/17 in [place] and was discharged to rehab without major issues during her post operative period. Today she is awake and oriented x 2 and follows simple instructions. Per the daughter she is more appropriate today. Patient comfortable in bed and denies pain. Denies falling, fevers, chills, nausea, vomiting, CP or SOB. Past Medical/Surgical History Medical Problems: (1) Altered mental status Status: Acute Social History Smoking Status: Never Smoker Smokeless Tobacco Use: No Alcohol Use: none Drug Use: none Marital Status: Housing Status: other ([facility]) Occupation Status: retired Allergies Coded Allergies: No Known Allergies (Unverified , 07/17/17) Home Medications Scheduled Acetaminophen Tab (Tylenol), 650 MG PO Q4H Apixaban (Eliquis), 2.5 MG PO Q12 Atorvastatin (Lipitor), 40 MG PO HS Carvedilol (Coreg), 6.25 MG PO BID Docusate Sodium (Docusate Sodium), 1 CAP PO BID Ezetimibe (Zetia), 10 MG PO DAILY Famotidine (Pepcid), 80 MG PO BID Fluticasone Propionate (Nasal) (Flonase Allergy Relief), 1 SPRAY JOSE DAILY Hydrochlorothiazide (Hctz), 25 MG PO DAILY Lidocaine (Lidoderm Patch 5%), 2 PATCH TD QAM Lisinopril (Prinivil), 20 MG PO DAILY Loratadine (Claritin), 10 MG PO DAILY Metoclopramide Hcl (Reglan), 5 MG PO ACHS Nitroglycerin (Nitrostat), 0.4 MG UT PRN Ropinirole (Requip), 4 MG PO Q8 Senna/Docusate Sod (Senokot S), 1 TAB PO HS Scheduled PRN Dextromethorphan-Guaifenesin (Guaifenesin/Dextromethorp 10-100 mg/5Ml), 5 ML PO Q4H PRN for Cough Hydroxyzine Hcl (Atarax), 25 MG PO Q6H PRN for Itching Lorazepam (Ativan), 1 MG PO BID PRN for Anxiety Tramadol (Ultram), 25 MG PO Q4H PRN for Pain Current Inpatient Medications Current Inpatient Medications Medications (Trade) Dose Ordered Sig/Debbi Route Start Time Stop Time Status Last Admin Dose Admin Apixaban (Eliquis Tab) 2.5 mg Q12 PO 07/17/17 21:00 08/16/17 20:59 07/18/17 07:38 2.5 MG Carvedilol (Coreg Tab) 6.25 mg BID PO 07/17/17 21:00 08/16/17 20:59 07/18/17 07:38 6.25 MG Famotidine (Pepcid Tab) 40 mg BID PO 07/17/17 21:00 08/16/17 20:59 07/18/17 07:38 40 MG Fluticasone Propionate (Flonase Nasal [place]) 2 sprays DAILY JOSE 07/18/17 09:00 08/17/17 08:59 07/18/17 07:38 2 SPRAYS Lidocaine (Lidoderm Patch 5%) 2 patch QAM TD 07/18/17 09:00 08/17/17 08:59 07/18/17 07:39 2 PATCH Lisinopril (Zestril Tab) 20 mg DAILY PO 07/18/17 09:00 08/17/17 08:59 07/18/17 07:38 20 MG Ropinirole HCl (Requip Tab) 4 mg Q8 PO 07/17/17 22:00 08/16/17 21:59 07/18/17 06:11 4 MG Senna/Docusate Sodium (Senokot S Tab) 1 tab HS PO 07/17/17 21:00 08/16/17 20:59 Miscellaneous (Iv Fluids Completed) 1 ea PRN PRN N/A 07/17/17 16:00 07/17/18 15:59 Metoclopramide HCl (Reglan Tab) 5 mg ACHS PRN PO 07/17/17 16:00 08/16/17 15:59 Miscellaneous (Remove Lidoderm Patch) 2 ea DAILY@2100 N/A 07/17/17 21:00 08/16/17 20:59 07/17/17 21:03 2 EA Enalaprilat 0.625 mg/Dextrose 25.5 ml @ 100 mls/hr Q6H PRN IV 07/17/17 18:30 08/16/17 18:29 Acetaminophen (Tylenol Tab) 325 mg Q4H PRN PO 07/18/17 11:30 08/17/17 11:29 Review of Systems Systems negative except for those mentioned in the HPI Physical Exam Date Time Temp Pulse Resp B/P (MAP) Pulse Ox O2 Delivery O2 Flow Rate FiO2 07/18/17 10:55 36.9 87 18 134/80 (98) 95 Room Air 07/18/17 08:32 99 Room Air 07/18/17 07:41 36.9 94 16 151/63 (92) 99 Room Air 07/18/17 04:00 Room Air 07/18/17 03:56 36.5 90 21 141/72 (95) 96 Room Air 07/18/17 00:00 37.0 90 18 156/63 (94) 94 Room Air 07/18/17 00:00 Room Air 07/17/17 20:00 Room Air 07/17/17 20:00 Room Air 07/17/17 16:07 96 18 182/81 96 Room Air 07/17/17 14:13 98 20 159/83 96 Room Air 07/17/17 13:04 92 07/17/17 12:12 93 16 176/70 98 Room Air NAD, AOX2 LLE NVSI +EHL/FHL/TA/GS SILT grossly, CR< 2 seconds, compartments soft NT Surgical incision anterior hip C/D/I, mild incisional erythema around helen, no cellulitis, no active bleeding or purulent drainage. No bryan-incisional tenderness or fluctuance/induration. No dehiscence of the incision. Laboratory Results Last 24 Hours Test 07/17/17 15:57 07/18/17 06:18 07/18/17 07:00 Ammonia 22.0 umol/L White Blood Count 5.91 K/uL Red Blood Count 3.04 M/uL Hemoglobin 9.4 g/dL Hematocrit 27.8 % Mean Corpuscular Volume 91.4 fL Mean Corpuscular Hemoglobin 30.9 pg Mean Corpuscular Hemoglobin Concent 33.8 g/dl Platelet Count 227 K/uL Mean Platelet Volume 8.9 fL Neutrophils (%) (Auto) 72.4 % Lymphocytes (%) (Auto) 14.6 % Monocytes (%) (Auto) 10.0 % Eosinophils (%) (Auto) 2.0 % Basophils (%) (Auto) 0.3 % Neutrophils # (Auto) 4.28 K/uL Lymphocytes # (Auto) 0.86 K/uL Monocytes # (Auto) 0.59 K/uL Eosinophils # (Auto) 0.12 K/uL Basophils # (Auto) 0.02 K/uL RDW Standard Deviation 48.5 fL RDW Coefficient of Variation 14.5 % Immature Granulocyte % (Auto) 0.7 % Immature Granulocyte # (Auto) 0.04 K/uL Sodium Level 137 mmol/L Potassium Level 3.3 mmol/L Chloride Level 102 mmol/L Carbon Dioxide Level 25 mmol/L Anion Gap 10.0 mmol/L Blood Urea Nitrogen 10 mg/dl Creatinine 0.54 mg/dl Est Creatinine Clear Calc Drug Dose 49.4 ml/min Estimated GFR () 99.0 Estimated GFR (Non- 85.4 BUN/Creatinine Ratio 18.7 Random Glucose 68 mg/dl Calcium Level 7.8 mg/dl Total Bilirubin 0.7 mg/dl Direct Bilirubin 0.3 mg/dl Aspartate Amino Transf (AST/SGOT) 142 U/L Alanine Aminotransferase (ALT/SGPT) 121 U/L Alkaline Phosphatase 182 U/L Total Protein 5.2 gm/dl Albumin 2.0 gm/dl Urine Color YELLOW Urine Appearance CLEAR Urine pH 7.0 Urine Specific [place] 1.014 Urine Protein NEG Urine Glucose (UA) NEG Urine Ketones 1+ Urine Occult Blood NEG Urine Nitrite NEG Urine Bilirubin NEG Urine Urobilinogen NEG Urine Leukocyte Esterase TRACE Urine WBC (Auto) 1-5 /hpf Urine RBC (Auto) 0-4 /hpf Urine Hyaline Casts (Auto) 1-5 /lpf Urine Epithelial Cells (Auto) 20-30 /lpf Urine Bacteria (Auto) NEG Assessment & Plan POD #7 s/p Left BRENT at [place], no active drainage or signs of infection of the surgical site. -XR Pelvis/Left Hip -NWB LLE pending results of XR -PT/OT when medically stable -Continue with DVT PPX -Follow up discharge recommendations/restrictions given by her operating surgeon in [place] as well as her post op follow up appointment. -Monitor for incisional drainage, currently dry, would consider incisional vac dressing if drainage continues. -Would consider trending inflammatory markers ESR/CRP/WBC, currently WBC normal.
--- NOTE | 2017-07-18 12:29 | DIAGNOSTIC IMAGING REPORT ---
AP PELVIS AND LEFT HIP 3 VIEWS CLINICAL HISTORY: History of fracture status post total left hip arthroplasty COMPARISON STUDY: No previous studies for comparison. FINDINGS: There are postsurgical changes of bilateral total hip arthroplasties. On the left there is a proximal cerclage wire. There are postsurgical changes of a lumbosacral spinal fusion. No acute fractures are visualized. There are vascular calcifications present. Air within soft tissues adjacent the left hip are consistent with recent surgery. There are overlying skin helen. IMPRESSION: Postsurgical changes as described above. Electronically signed by: Wade Ayoub M.D. 07/18/2017 12:28 PM Dictated Date/Time: 07/18/2017 12:27 PM
--- NOTE | 2017-07-18 14:29 | Neurology Consultation ---
Neurology Consultation Date of Consultation: Jul 18, 2017. Attending Physician: John Clay MD Primary Care Physician: Katarzyna Dean D.O. Reason for Consultation: altered mental status History of Present Illness Source: patient, family, spouse Damaris is a 86 year old female PMH CAD s/p CABG, PE/DVT, HTN She underwent Left BRENT and Femoral Fracture Repair in [facility] 07/11/17. She was transferred to [facility] rehab 07/14/17. At she did have some confusional episodes especially during the night. They tried to wake patient up but was unresponsive. Her initial blood pressure was 180s but other vitals were stable. She was brought to the ED and at that point she was responsive. She was a febrile. She had a CT head which showed no acute findings but an old left basal ganglia infarct. Daughter states she has been waxing and weaning with her mental status for months. She had been in the hospital perviously for hyponatremia. There have been times when she is pretty good and then she will have episodes of telling stories that don't make sense. denies CP, SOB, abdominal pain, weakness, numbness tingling. +Left leg pain she states when she moves it. Past Medical/Surgical History Medical Problems: (1) Altered mental status Status: Acute Social History Smokeless Tobacco Use: No Alcohol Use: none Drug Use: none Marital Status: Housing Status: other ([facility]) Occupation Status: retired Allergies Coded Allergies: No Known Allergies (Unverified , 07/17/17) Current Inpatient Medications Current Inpatient Medications Medications (Trade) Dose Ordered Sig/Debbi Route Start Time Stop Time Status Last Admin Dose Admin Apixaban (Eliquis Tab) 2.5 mg Q12 PO 07/17/17 21:00 08/16/17 20:59 07/18/17 07:38 2.5 MG Carvedilol (Coreg Tab) 6.25 mg BID PO 07/17/17 21:00 08/16/17 20:59 07/18/17 07:38 6.25 MG Famotidine (Pepcid Tab) 40 mg BID PO 07/17/17 21:00 08/16/17 20:59 07/18/17 07:38 40 MG Fluticasone Propionate (Flonase Nasal [place]) 2 sprays DAILY JOSE 07/18/17 09:00 08/17/17 08:59 07/18/17 07:38 2 SPRAYS Lidocaine (Lidoderm Patch 5%) 2 patch QAM TD 07/18/17 09:00 08/17/17 08:59 07/18/17 07:39 2 PATCH Lisinopril (Zestril Tab) 20 mg DAILY PO 07/18/17 09:00 08/17/17 08:59 07/18/17 07:38 20 MG Ropinirole HCl (Requip Tab) 4 mg Q8 PO 07/17/17 22:00 08/16/17 21:59 07/18/17 14:10 4 MG Senna/Docusate Sodium (Senokot S Tab) 1 tab HS PO 07/17/17 21:00 08/16/17 20:59 Miscellaneous (Iv Fluids Completed) 1 ea PRN PRN N/A 07/17/17 16:00 07/17/18 15:59 Metoclopramide HCl (Reglan Tab) 5 mg ACHS PRN PO 07/17/17 16:00 08/16/17 15:59 Miscellaneous (Remove Lidoderm Patch) 2 ea DAILY@2100 N/A 07/17/17 21:00 08/16/17 20:59 07/17/17 21:03 2 EA Enalaprilat 0.625 mg/Dextrose 25.5 ml @ 100 mls/hr Q6H PRN IV 07/17/17 18:30 08/16/17 18:29 Acetaminophen (Tylenol Tab) 325 mg Q4H PRN PO 07/18/17 11:30 08/17/17 11:29 Physical Exam Vital Signs (Past 24 Hrs): Date Time Temp Pulse Resp B/P (MAP) Pulse Ox O2 Delivery O2 Flow Rate FiO2 07/18/17 12:06 99 Room Air 07/18/17 10:55 36.9 87 18 134/80 (98) 95 Room Air 07/18/17 08:32 99 Room Air 07/18/17 07:41 36.9 94 16 151/63 (92) 99 Room Air 07/18/17 04:00 Room Air 07/18/17 03:56 36.5 90 21 141/72 (95) 96 Room Air 07/18/17 00:00 37.0 90 18 156/63 (94) 94 Room Air 07/18/17 00:00 Room Air 07/17/17 20:00 Room Air 07/17/17 20:00 Room Air 07/17/17 16:07 96 18 182/81 96 Room Air Physical Exam: Constitutional: appearance nourished, sleeping but easily aroused with voice Ears, Nose, Mouth and Throat: mucous membranes moist, no injection and skin normal, eyes normal Cardiovascular: normal S-1 and S-2 and regular rate and rhythm Respiratory: clear to auscultation (CTA) and no rales, rhonchi or wheeze Musculoskeletal: left LE edema left lateral stapled incision line no discharge, mildly tender with palpation Skin: no stigmata of neurocutaneous disease noted and normal and intact Eyes: extraocular muscles intact (EOMI) and pupils equal, round and reactive to light (PERRL) NEUROLOGIC EXAMINATION: Mental status: Alert and interactive Oriented thinks she is in a [employer] school, when told she is in a hospital she states she know that, can identify her and daughter Oriented to person Speech fluent with no evidence of aphasia Cranial Nerves smile eye brow raise symmetric Reflexes: Deep tendon reflexes were symmetrical and graded 2/5 UE Sensory: intact to light touch Coordination: finger to nose with no bipass Gait/Stance: Posture lying in bed Motor: Negative for pronator drift of out stretched arms with eyes closed. 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 not with resistance. plantar flex ext 5/5 Laboratory Results Past 24 Hours: 07/18/17 06:18 Red Blood Count 3.04, Mean Corpuscular Volume 91.4, Mean Corpuscular Hemoglobin 30.9, Mean Corpuscular Hemoglobin Concent 33.8, Mean Platelet Volume 8.9, Neutrophils (%) (Auto) 72.4, Lymphocytes (%) (Auto) 14.6, Monocytes (%) (Auto) 10.0, Eosinophils (%) (Auto) 2.0, Basophils (%) (Auto) 0.3, Neutrophils # (Auto ) 4.28, Lymphocytes # (Auto) 0.86, Monocytes # (Auto) 0.59, Eosinophils # (Auto ) 0.12, Basophils # (Auto) 0.02 10/9/17 06:18 Test 07/17/17 15:57 07/18/17 06:18 07/18/17 07:00 Ammonia 22.0 umol/L (11-32) White Blood Count 5.91 K/uL (4.8-10.8) Red Blood Count 3.04 M/uL (4.2-5.4) Hemoglobin 9.4 g/dL (12.0-16.0) Hematocrit 27.8 % (37-47) Mean Corpuscular Volume 91.4 fL (80-100) Mean Corpuscular Hemoglobin 30.9 pg (25-34) Mean Corpuscular Hemoglobin Concent 33.8 g/dl (32-36) Platelet Count 227 K/uL (130-400) Mean Platelet Volume 8.9 fL (7.4-10.4) Neutrophils (%) (Auto) 72.4 % Lymphocytes (%) (Auto) 14.6 % Monocytes (%) (Auto) 10.0 % Eosinophils (%) (Auto) 2.0 % Basophils (%) (Auto) 0.3 % Neutrophils # (Auto) 4.28 K/uL (1.4-6.5) Lymphocytes # (Auto) 0.86 K/uL (1.2-3.4) Monocytes # (Auto) 0.59 K/uL (0.11-0.59) Eosinophils # (Auto) 0.12 K/uL (0-0.5) Basophils # (Auto) 0.02 K/uL (0-0.2) RDW Standard Deviation 48.5 fL (36.4-46.3) RDW Coefficient of Variation 14.5 % (11.5-14.5) Immature Granulocyte % (Auto) 0.7 % Immature Granulocyte # (Auto) 0.04 K/uL (0.00-0.02) Anion Gap 10.0 mmol/L (3-11) Est Creatinine Clear Calc Drug Dose 49.4 ml/min Estimated GFR () 99.0 Estimated GFR (Non- 85.4 BUN/Creatinine Ratio 18.7 (10-20) Calcium Level 7.8 mg/dl (8.5-10.1) Total Bilirubin 0.7 mg/dl (0.2-1) Direct Bilirubin 0.3 mg/dl (0-0.2) Aspartate Amino Transf (AST/SGOT) 142 U/L (15-37) Alanine Aminotransferase (ALT/SGPT) 121 U/L (12-78) Alkaline Phosphatase 182 U/L (45-117) Total Protein 5.2 gm/dl (6.4-8.2) Albumin 2.0 gm/dl (3.4-5.0) Urine Color YELLOW Urine Appearance CLEAR (CLEAR) Urine pH 7.0 (4.5-7.5) Urine Specific [place] 1.014 (1.000-1.030) Urine Protein NEG (NEG) Urine Glucose (UA) NEG (NEG) Urine Ketones 1+ (NEG) Urine Occult Blood NEG (NEG) Urine Nitrite NEG (NEG) Urine Bilirubin NEG (NEG) Urine Urobilinogen NEG (NEG) Urine Leukocyte Esterase TRACE (NEG) Urine WBC (Auto) 1-5 /hpf (0-5) Urine RBC (Auto) 0-4 /hpf (0-4) Urine Hyaline Casts (Auto) 1-5 /lpf (0-5) Urine Epithelial Cells (Auto) 20-30 /lpf (0-5) Urine Bacteria (Auto) NEG (NEG) Imaging CT head- No acute intracranial pathology. 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 EEG- This EEG is essentially normal during wakefulness and 2 recorded episodes of drowsiness. There is no evidence for clearcut potentially epileptogenic activity during the tracing but its absence of course does not exclude the diagnosis of seizure activity. MRI without-Punctate focus of restricted diffusion in the left paramedian occipital lobe concerning for acute lacunar infarct Chronic small vessel ischemic change and old lacunar infarct in the left basal ganglia. Impression 86 year old with change in MS progressive memory loss s/p left hip surgery Plan 1. CT head with no new stroke on scan 2. increase in liver enzymes GI following 3. EEG - no seizure activity 4. PT/OT/speech for any discharge needs- hopefully back to HS 5. MRI completed left paramedian occipital lobe concerning for acute lacunar infarct 6. correct and follow any lab abnormalities 7. no obvious signs of infection 8. MRI with acute /subacute stroke 9. TTE- ordered 10. carotid echo -ordered 11. aspirin 81 mg started continue along with Eliquis- for probable new infarct 12. memory difficulties have been ongoing according to daughter. Likely delirium imposed on dementia. MRI finding would not cause current issues. further vascular work up pending. I have seen and discussed above patient with Dr Reba Zamorano, neurology Pt seen and examined. Hx is most cw with a delirium superimposed on dementia, related to multiple hospitalizations, Tramadol, Atarax. The imaged tiny left occipital infarct does not explain the pt sx. It is unlikely that the episode represented a posterior circulation transient ischemia given the gradual onset and gradual improvement without any signs or symptoms of post circ ischemia. Pt should see us in follow-up with family to discuss dementia. Agree with asa, stroke evaluation. GUZMAN Zamorano MD
--- NOTE | 2017-07-18 16:05 | DIAGNOSTIC IMAGING REPORT ---
BRAIN WITHOUT CONTRAST CLINICAL HISTORY: 86 years-old Female presenting with ALTERED MENTAL STATUS, difficulty arousing patient, confusion for 2 months, history of stroke, no head trauma. TECHNIQUE: Multisequence, multiplanar MR imaging of the brain was performed without the use of intravenous contrast. IV contrast: None. COMPARISON: CT head performed the previous day. FINDINGS: Proportional ventricular and sulcal prominence, likely age-related parenchymal volume loss. Periventricular and subcortical white matter T2/FLAIR hyperintensity, nonspecific but likely indicative of chronic small vessel ischemic change. Old lacunar in the left basal ganglia. No mass effect or midline shift. Punctate focus of restricted diffusion in the left paramedian occipital lobe (series 4 image 13; series 400 image 13). No extra-axial fluid collection. T2 skull base flow voids preserved. Bone marrow signal intensity within the calvarium within normal limits. Bilateral [place] lenses of the globes are absent. IMPRESSION: 1. Punctate focus of restricted diffusion in the left paramedian occipital lobe concerning for acute lacunar infarct. 2. Chronic small vessel ischemic change and old lacunar infarct in the left basal ganglia. Electronically signed by: Daryn Daniels M.D. 07/18/2017 4:04 PM Dictated Date/Time: 07/18/2017 3:59 PM
--- NOTE | 2017-07-18 19:54 | Progress Note ---
Medicine Progress Note Date & Time of Visit: Jul 18, 2017 at 11:22. Subjective patient seen resting in bed, daughter Nayeli at bedside alert, bright, oriented x 2 with some prodding, more conversant answers more questions appropriately per daughter, she still has episodes of confusion but improving denies headache, dizziness, chest pain, dyspnea, cough, abdominal pain denies pain on the surgical site no other symptoms Objective Last 8 Hrs Date Time Temp Pulse Resp B/P (MAP) Pulse Ox O2 Delivery O2 Flow Rate FiO2 07/18/17 10:55 36.9 87 18 134/80 (98) 95 Room Air 07/18/17 08:32 99 Room Air 07/18/17 07:41 36.9 94 16 151/63 (92) 99 Room Air 07/18/17 04:00 Room Air 07/18/17 03:56 36.5 90 21 141/72 (95) 96 Room Air Physical Exam: General- oriented x 2, not in distress, speaks in sentences with effort Eyes- anicteric Neck- supple, no JVD Lungs- clear breath sounds bilaterally Heart- regular rhythm; no murmur, normal rate Abdomen- normal bowel sounds, soft, nontender Extremities- left hip: surgical site (+) helen in place, wound well opposed, no discharge, (+) significant edema, mild erythema, mild warmth and tenderness on the upper ext, mild edema lower ext) Neuro- alert, oriented x 2; PERRL, EOMI; no facial palsy; no dysarthria; motor 5 /5 sensation 100% Skin- warm & dry Laboratory Results: Last 24 Hours Test 07/17/17 15:57 07/18/17 06:18 07/18/17 07:00 Ammonia 22.0 umol/L White Blood Count 5.91 K/uL Red Blood Count 3.04 M/uL Hemoglobin 9.4 g/dL Hematocrit 27.8 % Mean Corpuscular Volume 91.4 fL Mean Corpuscular Hemoglobin 30.9 pg Mean Corpuscular Hemoglobin Concent 33.8 g/dl Platelet Count 227 K/uL Mean Platelet Volume 8.9 fL Neutrophils (%) (Auto) 72.4 % Lymphocytes (%) (Auto) 14.6 % Monocytes (%) (Auto) 10.0 % Eosinophils (%) (Auto) 2.0 % Basophils (%) (Auto) 0.3 % Neutrophils # (Auto) 4.28 K/uL Lymphocytes # (Auto) 0.86 K/uL Monocytes # (Auto) 0.59 K/uL Eosinophils # (Auto) 0.12 K/uL Basophils # (Auto) 0.02 K/uL RDW Standard Deviation 48.5 fL RDW Coefficient of Variation 14.5 % Immature Granulocyte % (Auto) 0.7 % Immature Granulocyte # (Auto) 0.04 K/uL Sodium Level 137 mmol/L Potassium Level 3.3 mmol/L Chloride Level 102 mmol/L Carbon Dioxide Level 25 mmol/L Anion Gap 10.0 mmol/L Blood Urea Nitrogen 10 mg/dl Creatinine 0.54 mg/dl Est Creatinine Clear Calc Drug Dose 49.4 ml/min Estimated GFR () 99.0 Estimated GFR (Non- 85.4 BUN/Creatinine Ratio 18.7 Random Glucose 68 mg/dl Calcium Level 7.8 mg/dl Total Bilirubin 0.7 mg/dl Direct Bilirubin 0.3 mg/dl Aspartate Amino Transf (AST/SGOT) 142 U/L Alanine Aminotransferase (ALT/SGPT) 121 U/L Alkaline Phosphatase 182 U/L Total Protein 5.2 gm/dl Albumin 2.0 gm/dl Urine Color YELLOW Urine Appearance CLEAR Urine pH 7.0 Urine Specific [place] 1.014 Urine Protein NEG Urine Glucose (UA) NEG Urine Ketones 1+ Urine Occult Blood NEG Urine Nitrite NEG Urine Bilirubin NEG Urine Urobilinogen NEG Urine Leukocyte Esterase TRACE Urine WBC (Auto) 1-5 /hpf Urine RBC (Auto) 0-4 /hpf Urine Hyaline Casts (Auto) 1-5 /lpf Urine Epithelial Cells (Auto) 20-30 /lpf Urine Bacteria (Auto) NEG Date/Time Source Procedure Growth Status 07/17/17 15:57 Blood Blood Culture Pending Received 07/18/17 07:00 Urine , Clean Catch Urine Culture Pending Received Assessment & Plan 86 year old female with history of CAD s/p CABG, PE/DVT, HTN, and other problems noted below presenting with altered mental status. ALTERED MENTAL STATUS likely Delirium - from recent Surgery, Medications - hold Tramadol, Metoclopromide changed to PRN - improving monitor R/O CVA ff up MRI brain R/O SEIZURE ff up EEG R/O INFECTION remains without fever, leukocytosis ff up blood culture, urine culture surgical site not infected per Ortho s/p LEFT HIP BRENT 07/11/17 surgical site not infected per Ortho Xray of the hip ordered ff up weightbearing recommendations per Ortho on Eliquis for DVT prophylaxis anticipate d/c back to [facility] when medically clear ELEVATED LFTS no history of liver disease LFTs improving Liver US unrevealing Statin held - GI consulted RIGHT ANTERIOR RIB FRACTURES denies chest pain monitor PRN analgesia ANEMIA Hg 9 at baseline monitor OLD CVA may need Aspirin, Statin on d/c MRI brain ordered PULMONARY EMBOLISM HISTORY on Eliquis for DVT proph CAD/CABG no cardiac symptoms continue Carvedilol, Lisinopril, Eliquis needs Aspirin HYPERTENSION hold HCTZ gentle IV fluids given HYPONATREMIA admitted recently for Na 112, secondary to dehydration Na stable, monitor DVT PROPHYLAXIS Eliquis DNR PER DETAILED DISCUSSION WITH PATIENT, SON AND DAUGHTER THEY SAID DO NOT PERFORM CPR, SHOCK, MECHANICAL VENTILATION. DISPO anticipate return to when medically stable Current Inpatient Medications: Current Inpatient Medications Medications (Trade) Dose Ordered Sig/Debbi Route Start Time Stop Time Status Last Admin Dose Admin Apixaban (Eliquis Tab) 2.5 mg Q12 PO 07/17/17 21:00 08/16/17 20:59 07/18/17 07:38 2.5 MG Carvedilol (Coreg Tab) 6.25 mg BID PO 07/17/17 21:00 08/16/17 20:59 07/18/17 07:38 6.25 MG Famotidine (Pepcid Tab) 40 mg BID PO 07/17/17 21:00 08/16/17 20:59 07/18/17 07:38 40 MG Fluticasone Propionate (Flonase Nasal [place]) 2 sprays DAILY JOSE 07/18/17 09:00 08/17/17 08:59 07/18/17 07:38 2 SPRAYS Lidocaine (Lidoderm Patch 5%) 2 patch QAM TD 07/18/17 09:00 08/17/17 08:59 07/18/17 07:39 2 PATCH Lisinopril (Zestril Tab) 20 mg DAILY PO 07/18/17 09:00 08/17/17 08:59 07/18/17 07:38 20 MG Ropinirole HCl (Requip Tab) 4 mg Q8 PO 07/17/17 22:00 08/16/17 21:59 10/9/17 06:11 4 MG Senna/Docusate Sodium (Senokot S Tab) 1 tab HS PO 07/17/17 21:00 08/16/17 20:59 Miscellaneous (Iv Fluids Completed) 1 ea PRN PRN N/A 07/17/17 16:00 07/17/18 15:59 Metoclopramide HCl (Reglan Tab) 5 mg ACHS PRN PO 07/17/17 16:00 08/16/17 15:59 Miscellaneous (Remove Lidoderm Patch) 2 ea DAILY@2100 N/A 07/17/17 21:00 08/16/17 20:59 07/17/17 21:03 2 EA Enalaprilat 0.625 mg/Dextrose 25.5 ml @ 100 mls/hr Q6H PRN IV 07/17/17 18:30 08/16/17 18:29
[2017-07-18] MEDS: DOCUSATE SODIUM/SENNA 50/8.6MG TAB PO SCH (20:35)
--- NOTE | 2017-07-18 22:37 | DIAGNOSTIC IMAGING REPORT ---
BILATERAL CAROTID DOPPLER STUDY HISTORY: Recent stroke. COMPARISON: None. TECHNIQUE: Real-time, grayscale, and color Doppler sonography of the carotid arteries was performed. Imaging reviewed in the transverse and longitudinal planes. All measurements were calculated based on NASCET criteria. FINDINGS: Antegrade flow is seen in the bilateral vertebral arteries. Mild scattered calcified plaque within the bilateral carotid arteries. The peak systolic velocity within the right ICA is 68 cm/s. The right systolic ratio is 0.9. The peak systolic velocity within the left ICA is 63 cm/s. The left systolic ratio is 0.8. IMPRESSION: No hemodynamically significant stenosis seen within the carotid arteries. Electronically signed by: Gerardo Anderson M.D. 07/18/2017 10:36 PM Dictated Date/Time: 07/18/2017 10:35 PM
[2017-07-18] MEDS: ACETAMINOPHEN 325 MG TAB PO PRN (22:46)
[2017-07-19] VITALS (8 sets, daily range): BP systolic 125–196; BP diastolic 57–90; PULSE 75–88; TEMP 36.6–37.2; O2SAT 94–99
[2017-07-19] MEDS: ACETAMINOPHEN 325 MG TAB PO PRN ×2 (05:18→18:17)
[2017-07-19] MEDS: ROPINIROLE HCL 1 MG TAB PO SCH ×3 (06:16→21:41)
--- NOTE | 2017-07-19 06:36 | Clinical Documentation Query ---
Dr. MURILLO,JOYCE : CLINICAL DOCUMENTATION QUERY Patient is an 86 year old female admitted for evaluation of an altered mental status, deemed likely delirium. CT scan of the head negative for acute event. MRI, however read to include "punctate focus of restricted diffusion in the left paramedian occipital lobe concerning for acute lacunar infarct." She has been seen in consultation by neurology and has been started on Eliquis and ASA. No attending documentation of this finding exists. As appropriate, please include in daily progress notes and discharge summary. Thank you. In your clinical opinion is this patient being managed for: ( ) Cerebral infarction, POA ( ) Not Agree ( ) Other explanation of clinical findings (Please Explain) ( ) Unable to determine (Please Define) ( ) Need to Discuss The medical record reflects the following clinical findings, treatment, and risk factors. Clinical Indicators: As above Treatment: Neurologic consultation, Eliquis, ASA Risk Factors: Age, prior CVA/cerebrovascular disease, hypertension Please clarify and document your clinical opinion in the progress notes and discharge summary. Terms such as "probable", "suspected", "likely", "questionable", "possible", or "still to be ruled out" are acceptable. IF IN AGREEMENT, YOU MUST DOCUMENT ABOVE DIAGNOSTIC STATEMENT IN DAILY PROGRESS NOTES AND DISCHARGE SUMMARY. This document is not part of the patient's record. Thank You, Lionel Sánchez, RN [phone]
[2017-07-19 08:28] LABS: BASO % 0.2 %; BASO ABS # 0.01 K/uL (0-0.2); EOS % 2.5 %; HEMATOCRIT 25.3 % (37-47); IG% 1.3 %; LYMPH ABS # 0.74 K/uL (1.2-3.4); MEAN CELL VOLUME 91.7 fL (80-100); MEAN CORPUSCULAR HEMOGLOBIN 31.9 pg (25-34); MEAN CORPUSCULAR HGB CONC 34.8 g/dl (32-36); MEAN PLATELET VOLUME 8.7 fL (7.4-10.4); MONO % 8.9 %; NEUT % 73.1 %; PLATELET COUNT 217 K/uL (130-400); RED BLOOD COUNT 2.76 M/uL (4.2-5.4); WHITE BLOOD COUNT 5.27 K/uL (4.8-10.8)
[2017-07-19] MEDS: CARVEDILOL 6.25 MG TAB PO SCH ×2 (08:49→21:41)
[2017-07-19] MEDS: FLUTICASONE PROPIONATE NA SPR 16 GM BTL NAE SCH (08:49)
[2017-07-19] MEDS: LISINOPRIL 20 MG TAB PO SCH (08:49)
[2017-07-19] MEDS: FAMOTIDINE 20 MG TAB PO SCH ×2 (08:50→21:40)
[2017-07-19] MEDS: ASPIRIN 81 MG ECTAB PO SCH (08:50)
[2017-07-19] MEDS: APIXABAN 2.5 MG TAB PO SCH ×2 (08:50→21:39)
[2017-07-19] MEDS: LIDODERM (LIDOCAINE) PATCH 5% TD SCH ×2 (08:50→09:00)
[2017-07-19 08:51] LABS: ANISOCYTOSIS PRESENT; COMPLETE YES
[2017-07-19 09:17] LABS: BUN/CREATININE RATIO 12.8 (10-20); CALCIUM 7.7 mg/dl (8.5-10.1); CREATININE 0.58 mg/dl (0.60-1.20); POTASSIUM 3.4 mmol/L (3.5-5.1)
[2017-07-19] MEDS: GUAIFENESIN/CODEINE 100MG/10MG 5ML UDC PO PRN (09:26)
[2017-07-19] MEDS ORDERED: POTASSIUM CHLORIDE 10 MEQ TABCR PO ONE (12:45)
--- NOTE | 2017-07-19 13:50 | Neurology Progress Notes ---
Neurology Progress Note Date of Service Jul 19, 2017. James Ocampo is a 86 year old female PMH CAD s/p CABG, PE/DVT, HTN She underwent Left BRENT and Femoral Fracture Repair in [facility] 07/11/17. She was transferred to [facility] rehab 07/14/17. At she did have some confusional episodes especially during the night. They tried to wake patient up but was unresponsive. Her initial blood pressure was 180s but other vitals were stable. She was brought to the ED and at that point she was responsive. She was a febrile. She had a CT head which showed no acute findings but an old left basal ganglia infarct. Daughter states she has been waxing and weaning with her mental status for months. She had been in the hospital perviously for hyponatremia. There have been times when she is pretty good and then she will have episodes of telling stories that don't make sense. denies CP, SOB, abdominal pain, weakness, numbness tingling. +Left leg pain she states when she moves it. Today her daughter is in the room and states she is back to her baseline. She is still a little confused about where she is. denies CP, SOB, abdominal pain, N , V. Objective Date Time Temp Pulse Resp B/P (MAP) Pulse Ox O2 Delivery O2 Flow Rate FiO2 07/19/17 12:19 36.8 76 16 128/57 (80) 97 07/19/17 12:00 Room Air 07/19/17 08:00 36.8 77 18 148/66 (93) 99 07/19/17 08:00 Room Air 07/19/17 04:03 37.0 86 18 154/74 (100) 96 Room Air 07/19/17 04:00 Room Air 07/19/17 00:01 37.0 84 22 151/64 (93) 94 Room Air 07/19/17 00:00 Room Air 07/18/17 20:10 37.1 103 26 169/85 (113) 96 Room Air 07/18/17 20:00 Room Air 07/18/17 16:11 99 Room Air 07/18/17 16:06 36.9 99 18 159/64 (95) 99 Room Air Last 24 Hours Test 07/19/17 08:11 White Blood Count 5.27 K/uL Red Blood Count 2.76 M/uL Hemoglobin 8.8 g/dL Hematocrit 25.3 % Mean Corpuscular Volume 91.7 fL Mean Corpuscular Hemoglobin 31.9 pg Mean Corpuscular Hemoglobin Concent 34.8 g/dl Platelet Count 217 K/uL Mean Platelet Volume 8.7 fL Neutrophils (%) (Auto) 73.1 % Lymphocytes (%) (Auto) 14.0 % Monocytes (%) (Auto) 8.9 % Eosinophils (%) (Auto) 2.5 % Basophils (%) (Auto) 0.2 % Neutrophils # (Auto) 3.85 K/uL Lymphocytes # (Auto) 0.74 K/uL Monocytes # (Auto) 0.47 K/uL Eosinophils # (Auto) 0.13 K/uL Basophils # (Auto) 0.01 K/uL RDW Standard Deviation 49.1 fL RDW Coefficient of Variation 14.6 % Immature Granulocyte % (Auto) 1.3 % Immature Granulocyte # (Auto) 0.07 K/uL Anisocytosis PRESENT Sodium Level 137 mmol/L Potassium Level 3.4 mmol/L Chloride Level 104 mmol/L Carbon Dioxide Level 25 mmol/L Anion Gap 8.0 mmol/L Blood Urea Nitrogen 7 mg/dl Creatinine 0.58 mg/dl Est Creatinine Clear Calc Drug Dose 46.0 ml/min Estimated GFR () 96.7 Estimated GFR (Non- 83.5 BUN/Creatinine Ratio 12.8 Random Glucose 168 mg/dl Calcium Level 7.7 mg/dl Total Bilirubin 0.5 mg/dl Direct Bilirubin 0.2 mg/dl Aspartate Amino Transf (AST/SGOT) 86 U/L Alanine Aminotransferase (ALT/SGPT) 95 U/L Alkaline Phosphatase 141 U/L Total Protein 5.1 gm/dl Albumin 2.0 gm/dl Imaging: carotid doppler- No hemodynamically significant stenosis seen within the carotid arteries. MRI brain- . Punctate focus of restricted diffusion in the left paramedian occipital lobe concerning for acute lacunar infarct. Chronic small vessel ischemic change and old lacunar infarct in the left basal ganglia. Exam: Physical Exam: Constitutional: appearance nourished, thin pale Ears, Nose, Mouth and Throat: mucous membranes moist, no injection and skin normal, eyes normal Cardiovascular: normal S-1 and S-2 and regular rate and rhythm Respiratory: clear to auscultation (CTA) and no rales, rhonchi or wheeze Musculoskeletal: good distal pulses, LLE some edema good approximation of hip surgery site Skin: no stigmata of neurocutaneous disease noted and normal and intact Eyes: extraocular muscles intact (EOMI) and pupils equal, round and reactive to light (PERRL) NEUROLOGIC EXAMINATION: Mental status: Alert and interactive Oriented 2017, not sure with the location Oriented to person Speech fluent with no evidence of aphasia Cranial Nerves smile eye brow raise symmetric, tongue midline Sensory: light touch Coordination: finger to nose no bi pass Gait/Stance: Posture sitting in bed side chair Strength: hand hose wrapper biceps triceps 5/5, hip flex right to gravity, left slightly to gravity, plantar flex ext 5/5 Current Inpatient Medications Medications (Trade) Dose Ordered Sig/Debbi Route Start Time Stop Time Status Last Admin Dose Admin Apixaban (Eliquis Tab) 2.5 mg Q12 PO 07/17/17 21:00 08/16/17 20:59 07/19/17 08:50 2.5 MG Carvedilol (Coreg Tab) 6.25 mg BID PO 07/17/17 21:00 08/16/17 20:59 07/19/17 08:49 6.25 MG Famotidine (Pepcid Tab) 40 mg BID PO 07/17/17 21:00 08/16/17 20:59 07/19/17 08:50 40 MG Fluticasone Propionate (Flonase Nasal [place]) 2 sprays DAILY JOSE 07/18/17 09:00 08/17/17 08:59 07/19/17 08:49 2 SPRAYS Lidocaine (Lidoderm Patch 5%) 2 patch QAM TD 07/18/17 09:00 08/17/17 08:59 07/19/17 08:50 2 PATCH Lisinopril (Zestril Tab) 20 mg DAILY PO 07/18/17 09:00 08/17/17 08:59 07/19/17 08:49 20 MG Ropinirole HCl (Requip Tab) 4 mg Q8 PO 07/17/17 22:00 08/16/17 21:59 07/19/17 13:08 4 MG Senna/Docusate Sodium (Senokot S Tab) 1 tab HS PO 07/17/17 21:00 08/16/17 20:59 10/9/17 20:35 1 TAB Miscellaneous (Iv Fluids Completed) 1 ea PRN PRN N/A 07/17/17 16:00 07/17/18 15:59 Metoclopramide HCl (Reglan Tab) 5 mg ACHS PRN PO 07/17/17 16:00 08/16/17 15:59 Miscellaneous (Remove Lidoderm Patch) 2 ea DAILY@2100 N/A 07/17/17 21:00 08/16/17 20:59 07/18/17 20:35 2 EA Enalaprilat 0.625 mg/Dextrose 25.5 ml @ 100 mls/hr Q6H PRN IV 07/17/17 18:30 08/16/17 18:29 Acetaminophen (Tylenol Tab) 325 mg Q4H PRN PO 07/18/17 11:30 08/17/17 11:29 07/19/17 05:18 325 MG Aspirin (Ecotrin Tab) 81 mg QAM PO 07/19/17 09:00 08/18/17 08:59 07/19/17 08:50 81 MG Codeine Phosphate/ Guaifenesin (Robitussin-AC Sugar Free Syrup) 10 ml Q6H PRN PO 07/19/17 00:45 08/18/17 00:44 07/19/17 09:26 10 ML Impression 86 year old with change in MS progressive memory loss s/p left hip surgery Plan 1. CT head with no new stroke on scan 2. increase in liver enzymes GI following 3. EEG - no seizure activity 4. PT/OT/speech for any discharge needs- hopefully back to 5. MRI completed left paramedian occipital lobe concerning for acute lacunar infarct 6. correct and follow any lab abnormalities 7. no obvious signs of infection 8. MRI with acute /subacute stroke 9. TTE- pending read 10. carotid echo -no high grade stenosis 11. aspirin 81 mg started continue along with Eliquis- for probable new infarct 12. memory difficulties have been ongoing according to daughter. Likely delirium imposed on dementia. MRI finding would not cause current issues. further vascular work up pending. follow up in neurology clinic in 3-4 weeks, Reba Diana PAC schedule I have seen and discussed above patient with Dr Reba Zamorano, neurology Pt seen and examined, alert, nml language but disoriented to place no field cut or facial asymm. Strength in UE and LE symm. Imp Dementia with superimposed delirium likely related to mult hospitalizations, tramadol, atarax, improved. Will see pt in office with family to further discuss cognition. Incidental small vessel infarct, asymptomatic, continue asa, risk modification. GUZMAN Zamorano MD
--- NOTE | 2017-07-19 14:02 | ECHOCARDIOGRAM REPORT ---
*NOTICE TO RECEIVING [employer] This information is strictly Confidential and protected under [place] law. [place] law prohibits you from making any further disclosure of this information unless further disclosure is expressly permitted by the written consent of the person to whom it pertains or is authorized by law. A general authorization for the release of medical or other information is not sufficient for this purpose. Hospital accepts no responsibility if the information is made available to any other person, INCLUDING THE PATIENT. Interpretation Summary * Name: JERRY MAURER Study Date: 07/19/2017 06:45 AM BP: 148/66 mmHg * Patient Location: C.2E\S\E209\S\1 HR: 77 * : 1930 (M/d/yyyy) Gender: Female Height: 54 in * Age: 86 yrs Ethnicity: [place] Weight: 125 lb * Ordering Physician: Reba Diana * Referring Physician: Self, Referred * Performed By: Macey Plascencia RCS * * Reason For Study: Stroke * BSA: 1.4 m2 * -- Conclusions -- * Normal LV chamber size and wall thickness. * Normal LV systolic function, EF 55-60%. * No segmental left ventricular wall motion abnormalities are noted. * Grade I diastolic dysfunction. * Aortic valve sclerosis mild, without significant aortic valvular stenosis. * The interatrial septum is intact with no evidence for an atrial septal defect. * The interatrial septum bows toward right atrium consistent with elevated left atrial pressure. Procedure Details * A complete two-dimensional transthoracic echocardiogram was performed (2D, M-mode, Doppler and color flow Doppler). * A saline contrast injection was performed to assess for cardiac shunting. * The injection was performed through an intravenous line in the left arm. * The attending nurse who injected the saline contrast was Sania Hicks RN. * A total of 20 cc of agitated saline was given. Left Ventricle * The left ventricle is normal in size. * There is normal left ventricular wall thickness. * Ejection Fraction = 55-60%. * Left ventricular systolic function is normal. * No segmental left ventricular wall motion abnormalities are noted. * The left ventricular wall motion is normal. Right Ventricle * The right ventricular cavity size is normal (basal dimension <4.2 cm in right ventricular apical 4-chamber view). * The right ventricular systolic function is normal as assessed by tricuspid annular plane systolic excursion (TAPSE) (normal >1.5 cm). Atria * The left atrial size is normal. * Right atrial size is normal. * The interatrial septum is intact with no evidence for an atrial septal defect. * The interatrial septum bows toward right atrium consistent with elevated left atrial pressure. Mitral Valve * The mitral valve is normal in structure and function. Tricuspid Valve * The tricuspid valve is normal in structure and function. Aortic Valve * The aortic valve is trileaflet. * Aortic valve sclerosis mild, without significant aortic valvular stenosis. * There is no significant aortic regurgitation. Pulmonic Valve * The pulmonary valve is not well seen, but the Doppler examination is normal without significant regurgitation or stenosis. Great Vessels * The aortic root is normal size. Pericardium/Pleural * There is no pericardial effusion. Left Ventricular Diastolic Function * Grade I diastolic dysfunction, (abnormal relaxation pattern). MMode 2D Measurements and Calculations IVSd 0.92 cm IVSs 1.2 cm LVIDd 4.2 cm LVIDs 3.3 cm LVPWd 1.0 cm LVPWs 1.3 cm IVS/LVPW 0.90 FS 21.5 % EDV(Teich) 80.7 ml ESV(Teich) 45.2 ml EF(Teich) 44.0 % EDV(cubed) 76.6 ml ESV(cubed) 37.0 ml EF(cubed) 51.7 % % IVS thick 33.7 % % LVPW thick 22.6 % LV mass(C)d 134.7 grams LV mass(C)dI 95.1 grams/m\S\2 LV mass(C)s 134.2 grams LV mass(C)sI 94.7 grams/m\S\2 SV(Teich) 35.5 ml SI(Teich) 25.1 ml/m\S\2 SV(cubed) 39.6 ml SI(cubed) 28.0 ml/m\S\2 Ao root diam 3.5 cm Ao root area 9.6 cm\S\2 ACS 1.6 cm LA dimension 3.1 cm asc Aorta Diam 3.4 cm LA/Ao 0.88 EDV(MOD-sp4) 91.1 ml ESV(MOD-sp4) 46.5 ml EF(MOD-sp4) 49.0 % EDV(MOD-sp2) 84.8 ml ESV(MOD-sp2) 51.1 ml EF(MOD-sp2) 39.7 % SV(MOD-sp4) 44.6 ml SI(MOD-sp4) 31.5 ml/m\S\2 SV(MOD-sp2) 33.7 ml SI(MOD-sp2) 23.8 ml/m\S\2 Doppler Measurements and Calculations MV E max cherrie 71.2 cm/sec MV A max cherrie 124.0 cm/sec MV E/A 0.57 MV P1/2t max cherrie 91.4 cm/sec MV P1/2t 84.5 msec MVA(P1/2t) 2.6 cm\S\2 MV dec slope 316.9 cm/sec\S\2 MV dec time 0.21 sec Ao V2 max 139.3 cm/sec Ao max PG 7.8 mmHg Ao max PG (full) 4.1 mmHg LV V1 max PG 3.7 mmHg LV V1 max 96.0 cm/sec PA V2 max 86.4 cm/sec PA max PG 3.0 mmHg TR max cherrie 218.5 cm/sec
--- NOTE | 2017-07-19 18:10 | Progress Note ---
Medicine Progress Note Date & Time of Visit: Jul 19, 2017 at 17:47. Subjective Patient was seen and examined earlier today after lunch; her and daughter were both present in the room at that time. She has apparently returned to her baseline mentation with very mild confusion which she has experienced even prior to these recent hospitalizations. No complaints per the patient. No overnight events noted. She is anxious to get back to rehab. Objective Last 8 Hrs Date Time Temp Pulse Resp B/P (MAP) Pulse Ox O2 Delivery O2 Flow Rate FiO2 07/19/17 15:44 36.9 85 23 127/59 (81) 97 Room Air 07/19/17 15:39 Room Air 07/19/17 12:19 36.8 76 16 128/57 (80) 97 07/19/17 12:00 Room Air Physical Exam: General: adult, appears stated age, well groomed Head: atraumatic, normocephalic Eyes: PERRL, EOMI, anicteric ENT: hearing grossly intact, external nose and ears appear normal Neck: supple, no JVD, no carotids bruits appreciated Lungs: clear to auscultation bilaterally; no chest wall pain/tenderness to palpation noted Heart: RR; no gallop, no rub, no murmurs appreciated, S1 and S2 auscultated; Abdomen: soft, nontender, normal bowel sounds, no palpable masses, no notable hepatosplenomegaly Extremities: + LLE edema, no calf tenderness; left hip incision with erythema but no drainage and erythema not spreading Neuro: alert, oriented x 2; no facial palsy; no dysarthria; no acute focal deficits noted Skin: warm, dry, no rashes Laboratory Results: Last 24 Hours Test 07/19/17 08:11 White Blood Count 5.27 K/uL Red Blood Count 2.76 M/uL Hemoglobin 8.8 g/dL Hematocrit 25.3 % Mean Corpuscular Volume 91.7 fL Mean Corpuscular Hemoglobin 31.9 pg Mean Corpuscular Hemoglobin Concent 34.8 g/dl Platelet Count 217 K/uL Mean Platelet Volume 8.7 fL Neutrophils (%) (Auto) 73.1 % Lymphocytes (%) (Auto) 14.0 % Monocytes (%) (Auto) 8.9 % Eosinophils (%) (Auto) 2.5 % Basophils (%) (Auto) 0.2 % Neutrophils # (Auto) 3.85 K/uL Lymphocytes # (Auto) 0.74 K/uL Monocytes # (Auto) 0.47 K/uL Eosinophils # (Auto) 0.13 K/uL Basophils # (Auto) 0.01 K/uL RDW Standard Deviation 49.1 fL RDW Coefficient of Variation 14.6 % Immature Granulocyte % (Auto) 1.3 % Immature Granulocyte # (Auto) 0.07 K/uL Anisocytosis PRESENT Sodium Level 137 mmol/L Potassium Level 3.4 mmol/L Chloride Level 104 mmol/L Carbon Dioxide Level 25 mmol/L Anion Gap 8.0 mmol/L Blood Urea Nitrogen 7 mg/dl Creatinine 0.58 mg/dl Est Creatinine Clear Calc Drug Dose 46.0 ml/min Estimated GFR () 96.7 Estimated GFR (Non- 83.5 BUN/Creatinine Ratio 12.8 Random Glucose 168 mg/dl Calcium Level 7.7 mg/dl Total Bilirubin 0.5 mg/dl Direct Bilirubin 0.2 mg/dl Aspartate Amino Transf (AST/SGOT) 86 U/L Alanine Aminotransferase (ALT/SGPT) 95 U/L Alkaline Phosphatase 141 U/L Total Protein 5.1 gm/dl Albumin 2.0 gm/dl Assessment & Plan ALTERED MENTAL STATUS: -MRI brain shows a tiny possible acute lacunar infarct which apparently is not significant enough to cause the patient's mentation change on admission -urine culture grew 3 different organisms and thus likely contaminants -no other symptoms of infection -LFTs trending down -Ammonia Level normal -Carotid doppler negative for stenosis -TTE: EF 55-60% with grade I diastolic dysfunction and significant valvular disease -Neuro consulted, appreciate recommendations -most likely explanation for patient's symptoms are underlying dementia with overlying delirium possibly from medications -Tramadol, Atarax, Metoclopromide were given while in Rehab and have been held s/p LEFT HIP BRENT: -s/p surgery on 07/11/17 -surgical site with erythema, tenderness, warmth, Ortho was consulted and evaluated, no evidence to suggest wound infection ELEVATED LFTS: -no history of liver disease -Liver US RIGHT ANTERIOR RIB FRACTURES: -denies any chest pain -monitor -PRN analgesia -incentive spirometry ANEMIA: -Hb 9 at baseline -monitor -patient is recently post op as well, no evidence of bleeding OLD CVA: -started on Aspirin given the possible acute lacunar infarct -on d/c consider statin PULMONARY EMBOLISM HISTORY -on Eliquis for DVT proph CAD/CABG: -continue Carvedilol, Lisinopril, Eliquis -started on Aspirin -statin on DC HYPERTENSION: -hold HCTZ -gentle IV fluids PRIOR HX OF HYPONATREMIA: -stable, continue to monitor Current Inpatient Medications: Current Inpatient Medications Medications (Trade) Dose Ordered Sig/Debbi Route Start Time Stop Time Status Last Admin Dose Admin Apixaban (Eliquis Tab) 2.5 mg Q12 PO 07/17/17 21:00 08/16/17 20:59 07/19/17 08:50 2.5 MG Carvedilol (Coreg Tab) 6.25 mg BID PO 07/17/17 21:00 08/16/17 20:59 07/19/17 08:49 6.25 MG Famotidine (Pepcid Tab) 40 mg BID PO 07/17/17 21:00 08/16/17 20:59 07/19/17 08:50 40 MG Fluticasone Propionate (Flonase Nasal [place]) 2 sprays DAILY JOSE 07/18/17 09:00 08/17/17 08:59 07/19/17 08:49 2 SPRAYS Lidocaine (Lidoderm Patch 5%) 2 patch QAM TD 07/18/17 09:00 08/17/17 08:59 07/19/17 08:50 2 PATCH Lisinopril (Zestril Tab) 20 mg DAILY PO 07/18/17 09:00 08/17/17 08:59 07/19/17 08:49 20 MG Ropinirole HCl (Requip Tab) 4 mg Q8 PO 07/17/17 22:00 08/16/17 21:59 07/19/17 13:08 4 MG Senna/Docusate Sodium (Senokot S Tab) 1 tab HS PO 07/17/17 21:00 08/16/17 20:59 07/18/17 20:35 1 TAB Miscellaneous (Iv Fluids Completed) 1 ea PRN PRN N/A 07/17/17 16:00 07/17/18 15:59 Metoclopramide HCl (Reglan Tab) 5 mg ACHS PRN PO 07/17/17 16:00 08/16/17 15:59 Miscellaneous (Remove Lidoderm Patch) 2 ea DAILY@2100 N/A 07/17/17 21:00 08/16/17 20:59 07/18/17 20:35 2 EA Enalaprilat 0.625 mg/Dextrose 25.5 ml @ 100 mls/hr Q6H PRN IV 07/17/17 18:30 08/16/17 18:29 Acetaminophen (Tylenol Tab) 325 mg Q4H PRN PO 07/18/17 11:30 08/17/17 11:29 07/19/17 05:18 325 MG Aspirin (Ecotrin Tab) 81 mg QAM PO 07/19/17 09:00 08/18/17 08:59 07/19/17 08:50 81 MG Codeine Phosphate/ Guaifenesin (Robitussin-AC Sugar Free Syrup) 10 ml Q6H PRN PO 07/19/17 00:45 08/18/17 00:44 07/19/17 09:26 10 ML
[2017-07-19] MEDS: DOCUSATE SODIUM/SENNA 50/8.6MG TAB PO SCH (21:39)
[2017-07-20] MEDS: GUAIFENESIN/CODEINE 100MG/10MG 5ML UDC PO PRN ×3 (00:01→18:42)
[2017-07-20 04:14] VITALS: BP 166/83; PULSE 83; TEMP 36.8; O2SAT 99
[2017-07-20 05:56] LABS: BASO % 0.4 %; BASO ABS # 0.02 K/uL (0-0.2); EOS % 5.7 %; HEMATOCRIT 23.4 % (37-47); IG% 1.1 %; LYMPH % 24.7 %; LYMPH ABS # 1.16 K/uL (1.2-3.4); MEAN CELL VOLUME 92.5 fL (80-100); MEAN CORPUSCULAR HEMOGLOBIN 30.4 pg (25-34); MEAN CORPUSCULAR HGB CONC 32.9 g/dl (32-36); MEAN PLATELET VOLUME 8.9 fL (7.4-10.4); NEUT % 55.1 %; PLATELET COUNT 196 K/uL (130-400); RED BLOOD COUNT 2.53 M/uL (4.2-5.4)
[2017-07-20] MEDS: ROPINIROLE HCL 1 MG TAB PO SCH ×3 (06:15→19:49)
[2017-07-20 06:31] LABS: BUN/CREATININE RATIO 14.1 (10-20); CALCIUM 7.4 mg/dl (8.5-10.1); CREATININE 0.51 mg/dl (0.60-1.20)
[2017-07-20 06:49] LABS: ACANTHOCYTES 1+; ANISOCYTOSIS PRESENT; COMPLETE YES; HYPERSEGMENTED POLYS 1+; POIKILOCYTOSIS PRESENT; SCHISTOCYTES 1+
[2017-07-20 07:33] VITALS: BP 159/65; PULSE 78; TEMP 36.6; O2SAT 95
[2017-07-20] MEDS: FLUTICASONE PROPIONATE NA SPR 16 GM BTL NAE SCH (09:34)
[2017-07-20] MEDS: CARVEDILOL 6.25 MG TAB PO SCH ×2 (09:34→19:49)
[2017-07-20] MEDS: APIXABAN 2.5 MG TAB PO SCH ×2 (09:35→19:49)
[2017-07-20] MEDS: ASPIRIN 81 MG ECTAB PO SCH (09:35)
[2017-07-20] MEDS: FAMOTIDINE 20 MG TAB PO SCH ×2 (09:36→19:48)
[2017-07-20] MEDS: LISINOPRIL 20 MG TAB PO SCH (09:37)
[2017-07-20] MEDS: LIDODERM (LIDOCAINE) PATCH 5% TD SCH (09:41)
[2017-07-20 10:38] VITALS: O2SAT 95
[2017-07-20 11:08] VITALS: BP 125/54; PULSE 79; TEMP 36.4; O2SAT 96
[2017-07-20] MEDS: ACETAMINOPHEN 325 MG TAB PO PRN (15:46)
[2017-07-20 16:25] LABS: BASO % 0.3 %; BASO ABS # 0.02 K/uL (0-0.2); EOS % 2.9 %; HEMATOCRIT 25.7 % (37-47); IG% 1.1 %; LYMPH % 15.9 %; LYMPH ABS # 1.03 K/uL (1.2-3.4); MEAN CELL VOLUME 92.8 fL (80-100); MEAN CORPUSCULAR HEMOGLOBIN 30.7 pg (25-34); MEAN CORPUSCULAR HGB CONC 33.1 g/dl (32-36); MEAN PLATELET VOLUME 9.2 fL (7.4-10.4); MONO % 9.7 %; NEUT % 70.1 %; PLATELET COUNT 248 K/uL (130-400); RED BLOOD COUNT 2.77 M/uL (4.2-5.4); WHITE BLOOD COUNT 6.48 K/uL (4.8-10.8)
[2017-07-20 16:35] VITALS: BP 111/57; PULSE 84; TEMP 36.9; O2SAT 98
[2017-07-20 16:45] LABS: COMPLETE YES; ECHINOCYTES 1+; LARGE PLATELETS 1+
[2017-07-20 16:55] LABS: FERRITIN 213.4 ng/ml (8.0-388.0); THYROID STIMULATING HORMONE 1.24 uIu/ml (0.300-4.500)
[2017-07-20] MEDS ORDERED: NURSING VERBAL MED ORDER ONE (18:00)
--- NOTE | 2017-07-20 18:25 | Progress Note ---
Medicine Progress Note Date & Time of Visit: Jul 20, 2017 at 18:25. Subjective Patient denies any complaints, is anxious to get back to rehab. No overnight events noted. At baseline mentation. Had extensive talk with the patient and her daughter and then again in the afternoon with the patient and her . They are aware of the reason for staying today and the pending workup. Patient has been taking tylenol for pain which has been effective. Objective Last 8 Hrs Date Time Temp Pulse Resp B/P (MAP) Pulse Ox O2 Delivery O2 Flow Rate FiO2 07/20/17 16:35 36.9 84 16 111/57 (75) 98 Room Air 07/20/17 16:00 Room Air 07/20/17 12:32 Room Air 07/20/17 11:08 36.4 79 18 125/54 (77) 96 Room Air 07/20/17 10:38 95 Room Air Physical Exam: General: adult, appears stated age, well groomed Head: atraumatic, normocephalic Eyes: PERRL, EOMI, anicteric ENT: hearing grossly intact, external nose and ears appear normal Neck: supple, no JVD, no carotids bruits appreciated Lungs: clear to auscultation bilaterally; no chest wall pain/tenderness to palpation noted Heart: RR; no gallop, no rub, no murmurs appreciated, S1 and S2 auscultated; Abdomen: soft, nontender, normal bowel sounds, no palpable masses, no notable hepatosplenomegaly Extremities: + LLE edema, no calf tenderness; left hip incision with erythema but no drainage and erythema not spreading Neuro: alert, oriented x 2; no facial palsy; no dysarthria; no acute focal deficits noted Skin: warm, dry, no rashes Laboratory Results: Last 24 Hours Test 07/20/17 05:43 07/20/17 15:40 07/20/17 16:06 White Blood Count 4.70 K/uL 6.48 K/uL Red Blood Count 2.53 M/uL 2.77 M/uL Hemoglobin 7.7 g/dL 8.5 g/dL Hematocrit 23.4 % 25.7 % Mean Corpuscular Volume 92.5 fL 92.8 fL Mean Corpuscular Hemoglobin 30.4 pg 30.7 pg Mean Corpuscular Hemoglobin Concent 32.9 g/dl 33.1 g/dl Platelet Count 196 K/uL 248 K/uL Mean Platelet Volume 8.9 fL 9.2 fL Neutrophils (%) (Auto) 55.1 % 70.1 % Lymphocytes (%) (Auto) 24.7 % 15.9 % Monocytes (%) (Auto) 13.0 % 9.7 % Eosinophils (%) (Auto) 5.7 % 2.9 % Basophils (%) (Auto) 0.4 % 0.3 % Neutrophils # (Auto) 2.59 K/uL 4.54 K/uL Lymphocytes # (Auto) 1.16 K/uL 1.03 K/uL Monocytes # (Auto) 0.61 K/uL 0.63 K/uL Eosinophils # (Auto) 0.27 K/uL 0.19 K/uL Basophils # (Auto) 0.02 K/uL 0.02 K/uL RDW Standard Deviation 49.7 fL 50.0 fL RDW Coefficient of Variation 14.8 % 14.7 % Immature Granulocyte % (Auto) 1.1 % 1.1 % Immature Granulocyte # (Auto) 0.05 K/uL 0.07 K/uL Hypersegmented Polys 1+ Poikilocytosis PRESENT Anisocytosis PRESENT Acanthocytes 1+ Schistocytes 1+ Sodium Level 136 mmol/L Potassium Level 4.0 mmol/L Chloride Level 105 mmol/L Carbon Dioxide Level 24 mmol/L Anion Gap 7.0 mmol/L Blood Urea Nitrogen 7 mg/dl Creatinine 0.51 mg/dl Est Creatinine Clear Calc Drug Dose 52.3 ml/min Estimated GFR () 100.9 Estimated GFR (Non- 87.1 BUN/Creatinine Ratio 14.1 Random Glucose 93 mg/dl Calcium Level 7.4 mg/dl Total Bilirubin 0.5 mg/dl Direct Bilirubin 0.1 mg/dl Aspartate Amino Transf (AST/SGOT) 70 U/L Alanine Aminotransferase (ALT/SGPT) 83 U/L Alkaline Phosphatase 117 U/L Total Protein 4.7 gm/dl Albumin 1.8 gm/dl Stool Occult Blood NEGATIVE Large Platelets 1+ Echinocytes 1+ Absolute Reticulocyte Count 0.08 10^6/uL Percent Reticulocyte Count 2.9 % Iron Level 33 mcg/dl Total Iron Binding Capacity 185 mcg/dl Transferrin 137 mg/dl Transferrin % Saturation 17 % Ferritin 213.4 ng/ml Vitamin B12 Level 910 pg/mL Folate 13.05 ng/mL Thyroid Stimulating Hormone (TSH) 1.240 uIu/ml Assessment & Plan ANEMIA: -most likely postoperative; asymptomatic -no signs or symptoms of bleeding -FOBT negative -repeat CBC shows Hb 7.7-->8.4 -check iron studies and B12 and folate -baseline Hb is 9 ALTERED MENTAL STATUS: -MRI brain shows a tiny possible acute lacunar infarct which apparently is not significant enough to cause the patient's mentation change on admission -urine culture grew 3 different organisms and thus likely contaminants -no other symptoms of infection -LFTs trending down -Ammonia Level normal -Carotid doppler negative for stenosis -TTE: EF 55-60% with grade I diastolic dysfunction and significant valvular disease -Neuro consulted, appreciate recommendations -most likely explanation for patient's symptoms are underlying dementia with overlying delirium possibly from medications -Tramadol, Atarax, Metoclopramide were given while in Rehab and have been held s/p LEFT HIP BRENT: -s/p surgery on 07/11/17 -surgical site with erythema, tenderness, warmth, Ortho was consulted and evaluated, no evidence to suggest wound infection ELEVATED LFTS: -no history of liver disease -Liver US RIGHT ANTERIOR RIB FRACTURES: -denies any chest pain -monitor -PRN analgesia -incentive spirometry OLD CVA: -started on Aspirin given the possible acute lacunar infarct -on d/c consider statin PULMONARY EMBOLISM HISTORY -on Eliquis for DVT proph CAD/CABG: -continue Carvedilol, Lisinopril, Eliquis -started on Aspirin -statin on DC HYPERTENSION: -hold HCTZ -gentle IV fluids PRIOR HX OF HYPONATREMIA: -stable, continue to monitor Current Inpatient Medications: Current Inpatient Medications Medications (Trade) Dose Ordered Sig/Debbi Route Start Time Stop Time Status Last Admin Dose Admin Apixaban (Eliquis Tab) 2.5 mg Q12 PO 07/17/17 21:00 08/16/17 20:59 07/20/17 09:35 2.5 MG Carvedilol (Coreg Tab) 6.25 mg BID PO 07/17/17 21:00 08/16/17 20:59 07/20/17 09:34 6.25 MG Famotidine (Pepcid Tab) 40 mg BID PO 07/17/17 21:00 08/16/17 20:59 07/20/17 09:36 40 MG Fluticasone Propionate (Flonase Nasal [place]) 2 sprays DAILY JOSE 07/18/17 09:00 08/17/17 08:59 07/20/17 09:34 2 SPRAYS Lidocaine (Lidoderm Patch 5%) 2 patch QAM TD 07/18/17 09:00 08/17/17 08:59 07/20/17 09:41 2 PATCH Lisinopril (Zestril Tab) 20 mg DAILY PO 07/18/17 09:00 08/17/17 08:59 07/20/17 09:37 20 MG Ropinirole HCl (Requip Tab) 4 mg Q8 PO 07/17/17 22:00 08/16/17 21:59 07/20/17 13:40 4 MG Senna/Docusate Sodium (Senokot S Tab) 1 tab HS PO 07/17/17 21:00 08/16/17 20:59 07/19/17 21:39 1 TAB Miscellaneous (Iv Fluids Completed) 1 ea PRN PRN N/A 07/17/17 16:00 07/17/18 15:59 Metoclopramide HCl (Reglan Tab) 5 mg ACHS PRN PO 07/17/17 16:00 08/16/17 15:59 Miscellaneous (Remove Lidoderm Patch) 2 ea DAILY@2100 N/A 07/17/17 21:00 08/16/17 20:59 07/19/17 21:40 2 EA Enalaprilat 0.625 mg/Dextrose 25.5 ml @ 100 mls/hr Q6H PRN IV 07/17/17 18:30 08/16/17 18:29 Acetaminophen (Tylenol Tab) 325 mg Q4H PRN PO 07/18/17 11:30 08/17/17 11:29 07/20/17 15:46 325 MG Aspirin (Ecotrin Tab) 81 mg QAM PO 07/19/17 09:00 08/18/17 08:59 07/20/17 09:35 81 MG Codeine Phosphate/ Guaifenesin (Robitussin-AC Sugar Free Syrup) 10 ml Q6H PRN PO 07/19/17 00:45 08/18/17 00:44 07/20/17 07:58 10 ML Tramadol HCl (Ultram Tab) 25 mg Q6H PRN PO 07/20/17 18:30 08/19/17 18:29
[2017-07-20] MEDS ORDERED: TRAMADOL HCL 50 MG TAB PO PRN (18:30)
[2017-07-20] MEDS ORDERED: HYDROCODONE/ACETAMOPHEN 5/325MG TAB PO PRN (19:15)
[2017-07-20] MEDS: DOCUSATE SODIUM/SENNA 50/8.6MG TAB PO SCH (19:49)
[2017-07-20 19:52] VITALS: BP 139/73; PULSE 86; TEMP 36.8; O2SAT 97
[2017-07-21 00:39] VITALS: BP 177/83; PULSE 81; TEMP 36.7; O2SAT 99
[2017-07-21 02:06] VITALS: BP 152/75
[2017-07-21 03:52] VITALS: BP 157/67; PULSE 86; TEMP 36.5; O2SAT 99
[2017-07-21] MEDS: ROPINIROLE HCL 1 MG TAB PO SCH ×2 (06:14→13:20)
[2017-07-21 07:31] LABS: BASO % 0.4 %; BASO ABS # 0.02 K/uL (0-0.2); EOS % 3.5 %; HEMATOCRIT 26.2 % (37-47); IG% 1.2 %; LYMPH % 16.8 %; LYMPH ABS # 0.87 K/uL (1.2-3.4); MEAN CELL VOLUME 92.3 fL (80-100); MEAN CORPUSCULAR HEMOGLOBIN 30.3 pg (25-34); MEAN CORPUSCULAR HGB CONC 32.8 g/dl (32-36); MEAN PLATELET VOLUME 9.1 fL (7.4-10.4); MONO % 11.2 %; NEUT % 66.9 %; PLATELET COUNT 248 K/uL (130-400); RED BLOOD COUNT 2.84 M/uL (4.2-5.4); WHITE BLOOD COUNT 5.18 K/uL (4.8-10.8)
[2017-07-21] MEDS: LISINOPRIL 20 MG TAB PO SCH (07:45)
[2017-07-21] MEDS: CARVEDILOL 6.25 MG TAB PO SCH (07:45)
[2017-07-21] MEDS: APIXABAN 2.5 MG TAB PO SCH (07:45)
[2017-07-21] MEDS: FLUTICASONE PROPIONATE NA SPR 16 GM BTL NAE SCH (07:45)
[2017-07-21] MEDS: LIDODERM (LIDOCAINE) PATCH 5% TD SCH (07:46)
[2017-07-21] MEDS: FAMOTIDINE 20 MG TAB PO SCH (07:46)
[2017-07-21] MEDS: ASPIRIN 81 MG ECTAB PO SCH (07:46)
[2017-07-21 07:57] LABS: BUN/CREATININE RATIO 9.1 (10-20); CALCIUM 7.9 mg/dl (8.5-10.1); CREATININE 0.57 mg/dl (0.60-1.20)
[2017-07-21 08:02] VITALS: BP 156/65; PULSE 76; TEMP 36.6; O2SAT 96
[2017-07-21 08:12] LABS: ACANTHOCYTES 1+; ANISOCYTOSIS PRESENT; COMPLETE YES; OVALOCYTES 1+; SCHISTOCYTES 1+
[2017-07-21] MEDS ORDERED: ASPEC81 PO (10:32)
--- NOTE | 2017-07-21 10:34 | Discharge Instructions ---
Discharge Instructions Date of Service Jul 21, 2017. Admission Reason for Admission: Altered Mental Status Discharge Discharge Diagnosis / Problem: Altered mental status Discharge Goals Goal(s): Therapeutic intervention Activity Recommendations Activity Level: Assistance Required Therapies: Physical Therapy, Occupational Therapy . Additional Information Patient informed of condition: Yes Advance Directives: Yes DNR: Yes Level of Care: Acute Rehab Communicable Disease: No Prognosis: Stable [place]ve Catheter: No Instructions / Follow-Up Instructions / Follow-Up Please follow up with Primary care physician in 5 days, recheck a CBC in 5 days Please check a cholesterol panel and LFT's in 1 week either at [facility] or at PCP office; patient will likely need to be on a statin Current Hospital Diet Patient's current hospital diet: AHA Diet (Heart Healthy) Discharge Diet Recommended Diet: AHA Diet (Heart Healthy) Pending Studies Studies pending at discharge: no Medical Emergencies . Who to Call and When: Medical Emergencies: If at any time you feel your situation is an emergency, please call 911 immediately. . Non-Emergent Contact Non-Emergency issues call your: Primary Care Provider . . "Provider Documentation" section prepared by Marely Wilson. . Core Measure Problem Core Measures: None
[2017-07-21] MEDS ORDERED: ATOR-54 PO (10:37)
--- NOTE | 2017-07-21 10:38 | Discharge Summary ---
Discharge Summary Date of Service Jul 21, 2017. Discharge Summary Admission Date: Jul 18, 2017 at 11:22 Discharge Date: Jul 21, 2017 Discharge Disposition: Rehab Principal Diagnosis: Altered mental status, anemia, CVA, elevated transaminases Pending Studies/Follow-Up: Check CBC and LFTs at follow up appointment Medication Reconciliation New Medications: Atorvastatin (Lipitor) 20 Mg Tab 20 MG PO DAILY, #30 TAB Aspirin (Aspirin EC Low Dose) 81 Mg Ectab 81 MG PO QAM, #30 TABS Continued Medications: Acetaminophen Tab (Tylenol) 325 Mg Tab 650 MG PO Q4H Apixaban (Eliquis) 2.5 Mg Tab 2.5 MG PO Q12 Atorvastatin (Lipitor) 40 Mg Tab 40 MG PO HS Carvedilol (Coreg) 6.25 Mg Tab 6.25 MG PO BID Dextromethorphan-Guaifenesin (Guaifenesin/Dextromethorp 10-100 mg/5Ml) 1 Syp Syp 5 ML PO Q4H PRN for Cough Docusate Sodium (Docusate Sodium) 100 Mg Cap 1 CAP PO BID Ezetimibe (Zetia) 10 Mg Tab 10 MG PO DAILY Famotidine (Pepcid) 40 Mg Tab 80 MG PO BID Fluticasone Propionate (Nasal) (Flonase Allergy Relief) 50 Mcg/Act Spr 1 SPRAY JOSE DAILY Hydrochlorothiazide (Hctz) 25 Mg Tab 25 MG PO DAILY Lidocaine (Lidoderm Patch 5%) 1 Ea Tdsy 2 PATCH TD QAM TO LEFT HIP Lisinopril (Prinivil) 20 Mg Tab 20 MG PO DAILY Loratadine (Claritin) 10 Mg Tab 10 MG PO DAILY Nitroglycerin (Nitrostat) 0.4 Mg Tab 0.4 MG UT PRN Ropinirole (Requip) 2 Mg Tab 4 MG PO Q8 Senna/Docusate Sod (Senokot S) 1 Tab Tab 1 TAB PO HS Discontinued Medications: Hydroxyzine Hcl (Atarax) 25 Mg Tab 25 MG PO Q6H PRN for Itching Lorazepam (Ativan) 1 Mg Tab 1 MG PO BID PRN for Anxiety Metoclopramide Hcl (Reglan) 5 Mg Tab 5 MG PO ACHS Tramadol (Ultram) 50 Mg Tab 25 MG PO Q4H PRN for Pain Admission Information HPI (per Admitting provider): 86 year old female with history of CAD s/p CABG, PE/DVT, HTN, and other problems noted below presenting with altered mental status. Patient underwent Left BRENT and Femoral Fracture Repair in [facility] last 07/11/17. She was then transferred to [facility] rehab last 07/14/17. According to Rehab notes, patient was noted to have confusional episodes especially during the night. This morning, around 840am, PT tried to wake patient up but was unresponsive. RN was called, patient given sternal rub but was still not responding at all. [facility] was called, initial Bp was systolic 180s otherwise stable VS. after about 40 minutes of stimulation, patient eventually awakened and was brought to the ER. Patient received afebrile, no leukocytosis but noted to have elevated LFTs. 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 Hospitalist consulted. Seen with son and daughter in law at the bedside. She is alert, oriented x 2, answers some questions appropriately but would be confused most of the time. She does follow all simple commands. She denies headache, dizziness, nausea, chest pain, dyspnea, palpitations, abdominal pain, problems urinating. Does not report significant pain on the surgical site, nor problems with walking using a walker. Does report 1 episode of loose BM last night. Physical Exam (per Admitting): General Appearance: WD/WN, no apparent distress Head: normocephalic, atraumatic Eyes: normal inspection, PERRL, EOMI, sclerae normal ENT: normal ENT inspection, hearing grossly normal, pharynx normal Neck: supple, no adenopathy, thyroid normal, no JVD, trachea midline Respiratory/Chest: chest non-tender, lungs clear, normal breath sounds, no respiratory distress, no accessory muscle use Cardiovascular: regular rate, rhythm, no JVD, no murmur Abdomen/GI: normal bowel sounds, non tender, soft Extremities/Musculoskelatal: + pertinent finding (left hip: surgical site (+ ) helen in place, wound well opposed, no discharge, (+) significant edema, mild erythema, moderate warmth and tenderness on the upper ext, mild edema lower ext) Neurologic/Psych: clinical data analyst II-XII nml as tested, no motor/sensory deficits, normal mood/affect, normal reflexes, oriented x 3 Skin: normal color, warm/dry, no rash Lymphatic: no adenopathy Hospital Course ANEMIA: -most likely postoperative; asymptomatic -no signs or symptoms of bleeding -FOBT negative -repeat CBC shows Hb 7.7-->8.4-->8.6 -iron studies and B12 and folate; iron low, could start once daily supplement -baseline Hb is 9 ALTERED MENTAL STATUS: -MRI brain shows a tiny possible acute lacunar infarct which apparently is not significant enough to cause the patient's mentation change on admission -urine culture grew 3 different organisms and thus likely contaminants -no other symptoms of infection -LFTs trending down -Ammonia Level normal -Carotid doppler negative for stenosis -TTE: EF 55-60% with grade I diastolic dysfunction and significant valvular disease -Neuro consulted, appreciate recommendations -most likely explanation for patient's symptoms are underlying dementia with overlying delirium possibly from medications -Tramadol, Atarax, Metoclopramide were given while in Rehab and have been held s/p LEFT HIP BRENT: -s/p surgery on 07/11/17 -surgical site with erythema, tenderness, warmth, Ortho was consulted and evaluated, no evidence to suggest wound infection ELEVATED LFTS: -no history of liver disease -Liver US RIGHT ANTERIOR RIB FRACTURES: -denies any chest pain -monitor -PRN analgesia -incentive spirometry OLD CVA: -started on Aspirin given the possible acute lacunar infarct -on d/c added statin PULMONARY EMBOLISM HISTORY -on Eliquis for DVT proph CAD/CABG: -continue Carvedilol, Lisinopril, Eliquis -started on Aspirin -statin on DC HYPERTENSION: -hold HCTZ -gentle IV fluids PRIOR HX OF HYPONATREMIA: -stable, continue to monitor Physical Exam on day of discharge: General: adult, appears stated age Head: atraumatic, normocephalic Eyes: PERRL, EOMI, anicteric Neck: supple, no JVD, no carotids bruits appreciated Lungs: clear to auscultation bilaterally; no chest wall pain/tenderness to palpation noted Heart: RR; +ALIX, no gallop, no rub appreciated, S1 and S2 auscultated Abdomen: soft, nontender, normal bowel sounds, no palpable masses, no notable hepatosplenomegaly Extremities: no edema, no calf tenderness; left thigh incision with receding erythema, no drainage/swelling/tenderness Neuro: alert, oriented x 2; no facial palsy; no dysarthria; no acute focal deficits noted Skin: warm, dry, no rashes Total time spent on discharge = 41 This includes examination of the patient, discharge planning, medication reconciliation, and communication with other providers. Discharge Instructions See patient instructions
[2017-07-21 11:09] VITALS: BP 133/59; PULSE 82; TEMP 36.6; O2SAT 96
[2017-07-21 15:34] VITALS: BP 133/59; PULSE 82; TEMP 36.6; O2SAT 96
== END 2017-07-21 15:33 | DRG 947 ==
LOC: EDBD 09:49 → C.EDA 09:52 → C.2E 15:30 → ENRESERV 15:49 → OBSVTOIN 07-18 11:22
PROVIDERS: ADMIT Internal Medicine; ATTEND Internal Medicine
DX: R41.0 Disorientation, unspecified (principal); I63.9 Cerebral infarction, unspecified; S22.31XA Fracture of one rib, right side, initial encounter for closed fracture; Z96.641 Presence of right artificial hip joint; I25.10 Atherosclerotic heart disease of native coronary artery without angina pectoris; I10 Essential (primary) hypertension; D64.9 Anemia, unspecified; Z96.651 Presence of right artificial knee joint; X58.XXXA Exposure to other specified factors, initial encounter; Z90.710 Acquired absence of both cervix and uterus; Z86.711 Personal history of pulmonary embolism; Z80.9 Family history of malignant neoplasm, unspecified